=== PATIENT | female | born 1950 | race Caucasian/White ===

== ENCOUNTER 2016-02-08 21:37 | Observation (INO) | payer MEDICARE, BC ==
--- NOTE | 2016-02-08 22:15 | RAD ---
INDICATION: Neurologic change COMPARISON: None. TECHNIQUE: Contiguous axial sections of the brain were obtained from the skull base to the vertex without contrast. FINDINGS: The ventricles, cisterns and sulci are within normal limits. There is mild periventricular and subcortical white matter hypoattenuation. Otherwise the vaughan-white matter differentiation is adequately maintained and there is no sulcal effacement. No significant focal abnormality or mass effect is present. There is no evidence for intracranial hemorrhage. No significant focal osseous abnormality is present. The visualized portion of the paranasal sinuses and mastoid air cells appear clear. IMPRESSION: Evidence of subcortical and periventricular microvascular disease without acute intracranial abnormality. Findings were reported Dr. Pollock over the telephone at 2211 hours on February 08, 2016.
[2016-02-08] MEDS ORDERED: Aspirin Low Dose CHEW TAB* 81 MG PO ONE (22:18)
[2016-02-08 22:25] LABS: Hematocrit 40 % (35-47); Hemoglobin 13.1 g/dl (12.0-16.0); Mean Corpuscular HGB Conc 33 g/dl (31-36); Mean Corpuscular Hemoglobin 31 pg (27-31); Mean Corpuscular Volume 94 fL (80-97); Mean Platelet Volume 10 um3 (7.4-10.4); Red Blood Count 4.26 10^6/ul (4.0-5.4); Red Cell Distribution Width 13 % (10.5-15); White Blood Count 9.2 10^3/ul (3.5-10.8)
--- NOTE | 2016-02-08 22:37 | RAD ---
INDICATION: Lightheadedness COMPARISON: Chest x-ray dated December 27, 2011 TECHNIQUE: Single AP portable view of the chest was obtained. FINDINGS: Image quality is compromised due to the relative inferiority of a portable chest x-ray. The heart and mediastinum exhibit normal size and contour. The lungs are grossly clear. There is no evidence of a large pleural effusion. Visualized bones are normal for the patient's age. IMPRESSION: No radiographic evidence for acute cardiopulmonary abnormality on this portable chest x-ray.
[2016-02-08 22:40] LABS: Albumin 4.3 g/dL (3.2-5.2); BUN/Creatinine Ratio 19.4 (8-20); Calcium 9.1 mg/dL (8.6-10.3); EGFR African American 113.3 (>60); EGFR Non-African American 88.1 (>60); Globulin 2.5 g/dL (2-4); HDL Cholesterol 59.1 mg/dL; Total Bilirubin 0.3 mg/dL (0.2-1.0); Total Protein 6.8 g/dL (6.4-8.9)
[2016-02-08] MEDS ORDERED: Iohexol 350* (CONTRAST) 500 ML MDV IV ONE (22:46)
[2016-02-08] MEDS ORDERED: Zolpidem TAB* 5 MG PO PRN (22:58)
[2016-02-08 23:41] LABS: Urine Bacteria Absent (Absent); Urine Bilirubin Negative (Negative); Urine Glucose Negative (Negative); Urine Nitrite Negative (Negative)
--- NOTE | 2016-02-09 03:43 | HP ---
HISTORY AND PHYSICAL: DATE OF ADMISSION: 02/08/16 PRIMARY CARE PHYSICIAN: Dayanna Bell MD CHIEF COMPLAINT: Numbness in her lips. HISTORY OF PRESENT ILLNESS: The patient is a 65-year-old woman who said she was watching TV with her and started having some strange sensations in her head. She cannot really describe them but said maybe it was a whirling-type of sensation. She then panicked, put her head between her knees. Then she walked around and noticed that the left side of her lip and chin were numb. She walked into the other room and also felt a strange sensation in her left arm. She had no word- finding difficulties, no slurred speech, no facial droop, no difficulty ambulating, no problem with her vision. However, her looked this up on the internet and came to the ER for further evaluation. She currently feels much better, but she says she has pins and needles in her lips. PAST MEDICAL HISTORY: She has a past medical history significant for hypertension, rheumatoid arthritis, hypothyroidism, anxiety, left ovary was removed, tonsillectomy, bilateral arthroscopic knee surgery. CURRENT MEDICATIONS: 1. Ambien 5 mg at bedtime as needed. 2. Propranolol 60 mg daily. 3. Levothyroxine 100 mcg daily. 4. Lisinopril 10 mg daily. 5. Vitamin D tablets 400 units daily. 6. Leucovorin 5 mg weekly. 7. Plaquenil 400 mg daily. 8. Methotrexate unknown dose weekly. ALLERGIES: No known drug allergies. FAMILY HISTORY: Mother at 56 of breast cancer that metastasized to the lungs. Father at 82 of lung cancer. She has a sister now who is dying of lung cancer. SOCIAL HISTORY: Quit tobacco at age 41. She has red wine about 2 glasses at night. No recreational drug use. 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 She is . She has one biological daughter. Her , Kassy Tillamn, is her healthcare proxy. REVIEW OF SYSTEMS: A 14-point review of systems was completed with the patient. All pertinent positives and negatives are in the history of present illness, otherwise is negative. PHYSICAL EXAMINATION GENERAL: A pleasant woman lying in bed, in no acute distress. VITAL SIGNS: Blood pressure 137/74, pulse ox 97%, respiratory rate 17 breaths per minute, heart rate 67 beats per minute, temperature 97.4 degrees. HEENT: Normocephalic and atraumatic. Pupils equal, round, and reactive to light. Moist mucous membranes. NECK: Supple. No JVD. No bruits or palpable thyroid. No lymphadenopathy. CHEST: Clear to auscultation and percussion bilaterally. CARDIOVASCULAR: S1 and S2 appreciated. Regular rate and rhythm. No murmurs, gallops, or rubs. ABDOMEN: Positive bowel sounds in all 4 quadrants. Soft, nontender, nondistended. No hepatosplenomegaly. EXTREMITIES: No cyanosis, clubbing, or edema; +2 peripheral pulses bilaterally. NEURO: Alert and oriented x3. Moves all extremities. SKIN: No rashes or abnormalities. LABORATORY DATA: White count 9.2, hemoglobin 13.1, hematocrit 40, and platelets are 195. Sodium 137, potassium 4.0, chloride 104, CO2 25, BUN 13, creatinine 0.67, and glucose is 102. INR is 0.89. Brain CT as interpreted by Radiology showed evidence of subcortical and periventricular microvascular disease without acute intracranial abnormality. Chest x-ray was interpreted by Radiology as no radiographic evidence for acute cardiopulmonary abnormality on this portable chest x-ray. EKG shows normal sinus rhythm at 60 beats per minute. Normal axis. No acute ST -T wave changes. ASSESSMENT AND PLAN: 1. Transient ischemic attack, could be a stroke. She has some sensation abnormalities, but we will admit the patient to telemetry, do neurological checks q.4 hours, Neurology to see in the morning, check TTE with bubble studies , MRI of brain and CTA of head and neck. 2. Hypertension. Somewhat high today. She is on lisinopril. Adjust medications accordingly. 3. Rheumatoid arthritis. Continue hydroxychloroquine. Methotrexate is given weekly. 4. Hypothyroidism. Stable. Continue Synthroid. 5. Fluid, electrolytes, and nutrition. Regular diet. 6. DVT prophylaxis. Heparin subcu. 7. The patient is a full code. TIME SPENT: Over 75 minutes was spent on this H and P, more than 40 minutes were spent in direct [id number] contact with the patient in evaluation and physical exam, and counseling and coordination of care. CC: Dayanna Bell MD * [id number]/CPS #: [id number] [facility]
[2016-02-09] MEDS: Heparin VIAL(*) 5000 UNITS/ML VIAL (FIVE THOUSAND) SUBCUT SCH ×2 (05:17→13:59)
[2016-02-09] MEDS ORDERED: Levothyroxine TAB* 100 MCG TAB PO SCH (06:00)
[2016-02-09 06:56] LABS: HDL Cholesterol 59.7 mg/dL
--- NOTE | 2016-02-09 07:49 | RAD ---
HISTORY: Left facial numbness COMPARISONS: None TECHNIQUE: Multiple contiguous axial CT scans were obtained of the head and neck After the administration of nonionic intravenous contrast timed to the systemic arterial phase of contrast enhancement. Coronal and sagittal multiplanar reformations are submitted for review. Multiple 3-D maximum intensity projection reconstructions are also submitted for review. FINDINGS: CTA NECK: AORTIC ARCH: There is a normal three-vessel branching pattern of the aortic arch. There is no ostial or proximal stenosis of the cephalic great vessels. RIGHT VERTEBRAL ARTERY: The right vertebral artery is patent along its course, without stenosis. LEFT VERTEBRAL ARTERY: The left vertebral artery is patent along its course, without stenosis. DOMINANCE: The right vertebral artery is dominant. RIGHT COMMON CAROTID ARTERY: The right common carotid artery is patent. The right carotid bifurcation occurs at C3-C4 RIGHT INTERNAL CAROTID ARTERY: There is no right internal carotid artery stenosis by NASCET criteria. RIGHT EXTERNAL CAROTID ARTERY: The right external carotid artery is unremarkable. LEFT COMMON CAROTID ARTERY: The left common carotid artery is patent. The left carotid bifurcation occurs at C3-C4 LEFT INTERNAL CAROTID ARTERY: There is no left internal carotid artery stenosis by NASCET criteria. LEFT EXTERNAL CAROTID ARTERY: The left external carotid artery is unremarkable. VENOUS CIRCULATION: The venous system is unremarkable. SALIVARY GLANDS: The parotid glands, submandibular glands, sublingual glands are normal. NASAL CAVITY/NASOPHARYNX: The nasal cavity and nasopharynx are normal. ORAL CAVITY/OROPHARYNX: The oral cavity is obscured by streak artifact from dental amalgam. The visualized oral cavity and oropharynx are unremarkable. LARYNGEAL APPARATUS/HYPOPHARYNX: The laryngeal apparatus and hypopharynx are normal. UPPER AIRWAY/UPPER ESOPHAGUS: The visualized upper airway and esophagus are normal. LUNG APICES: The lung apices are clear. THYROID GLAND: The thyroid gland is normal. LYMPH NODES: There is no lymphadenopathy by size criteria. BONES AND SOFT TISSUES: Incidentally noted is a dysraphic defect of the posterior arch of C1. Degenerative changes are noted CTA HEAD: INTRACRANIAL CIRCULATION: There is no aneurysm, vascular malformation, occlusion, or stenosis of the visualized intracranial circulation. There is an infundibulum of the right posterior communicating artery.. The anterior communicating artery complex is clear. Bilateral posterior communicating arteries are identified. VENOUS CIRCULATION: The venous system is unremarkable. PERFUSION: There is no obvious parenchymal perfusion deficit. HEMORRHAGE/INFARCT: There is no hemorrhage or acute infarct. MASSES/SHIFT: There is no mass or shift. EXTRA-AXIAL SPACES: There are no extra-axial fluid collections. SULCI AND VENTRICLES: The sulci and ventricles are normal in size and position for the patient's stated age. CEREBRUM: There are no focal parenchymal abnormalities. BRAINSTEM: There are no focal parenchymal abnormalities. CEREBELLUM: There are no focal parenchymal abnormalities. PARANASAL SINUSES: The paranasal sinuses are clear. ORBITS: The orbits are unremarkable. BONES AND SOFT TISSUE: Unremarkable OTHER: There is no abnormal enhancement. IMPRESSION: 1. NO ANEURYSM, VASCULAR MALFORMATION, OCCLUSION, OR STENOSIS OF THE VISUALIZED INTRACRANIAL CIRCULATION. 2. NO INTERNAL CAROTID ARTERY STENOSIS BY NASCET CRITERIA CPT II Codes: 3100F
[2016-02-09] MEDS ORDERED: Aspirin EC Low Dose* 81 MG TAB.EC PO SCH (09:00)
[2016-02-09] MEDS ORDERED: Hydroxychloroquine TAB* 200 MG PO SCH (09:00)
[2016-02-09] MEDS ORDERED: Lisinopril TAB* 10 MG PO SCH (09:00)
[2016-02-09] MEDS ORDERED: Cholecalciferol TAB* 400 UNIT PO SCH (09:00)
[2016-02-09] MEDS ORDERED: Propranolol TAB* 60 MG PO SCH (09:00)
--- NOTE | 2016-02-09 10:16 | PN ---
Subjective Date of Service: 02/09/16 Interval History: Patient seen and examined at bedside. She continues to report tingling and numbness to the middle of her upper and lower lips, extending into the left jaw line. She denies fever, chest pain, SOB, abd pain, dysuria, n/v. She reports urinary frequency but not beyond her baseline. She follows with urology in the outpatient setting. Telemetry: NSR 50s-60s Family History: Unchanged from Admission Social History: Unchanged from Admission Past Medical History: Unchanged from Admission Objective Active Medications: Aspirin (Aspirin Ec Low Dose*) 81 mg PO DAILY [facility] Last Admin: 02/09/16 09:56 Dose: 81 mg Atorvastatin Calcium (Lipitor*) 10 mg PO 1700 [facility] Cholecalciferol (Vitamin D Tab*) 400 unit PO DAILY [facility] Last Admin: 02/09/16 09:56 Dose: 400 unit Heparin Sodium (Porcine) (Heparin Vial(*)) 5,000 units SUBCUT Q8HR [facility] Last Admin: 02/09/16 05:17 Dose: 5,000 units Hydroxychloroquine Sulfate (Plaquenil Tab*) 400 mg PO DAILY [facility] Last Admin: 02/09/16 09:55 Dose: 400 mg Levothyroxine Sodium (Synthroid Tab*) 100 mcg PO 0600 [facility] Last Admin: 02/09/16 05:18 Dose: 100 mcg Lisinopril (Prinivil Tab*) 10 mg PO DAILY [facility] Last Admin: 02/09/16 09:56 Dose: 10 mg Propranolol HCl (Inderal Tab*) 60 mg PO DAILY [facility] Last Admin: 02/09/16 09:56 Dose: 60 mg Zolpidem Tartrate (Ambien Tab*) 5 mg PO BEDTIME PRN PRN Reason: INSOMNIA Last Admin: 02/09/16 00:51 Dose: 5 mg Vital Signs 02/08/16 02/09/16 02/09/16 23:30 00:04 00:07 Temperature Pulse Rate 63 65 64 Respiratory 20 19 16 Rate Blood Pressure 135/97 (mmHg) O2 Sat by Pulse 94 97 95 Oximetry 02/09/16 02/09/16 02/09/16 00:09 00:25 03:25 Temperature 97.6 F 97.6 F Pulse Rate 65 61 55 Respiratory 17 17 20 Rate Blood Pressure 128/73 150/82 137/74 (mmHg) O2 Sat by Pulse 95 95 96 Oximetry 02/09/16 07:12 Temperature 98.0 F Pulse Rate 59 Respiratory 16 Rate Blood Pressure 121/83 (mmHg) O2 Sat by Pulse 98 Oximetry Oxygen Devices in Use Now: None Appearance: Female patient, well-appearing, lying in bed, in NAD Eyes: PERRLA Ears/Nose/Mouth/Throat: Mucous Membranes Moist Neck: NL Appearance and Movements; NL JVP Respiratory: Symmetrical Chest Expansion and Respiratory Effort, Clear to Auscultation Cardiovascular: NL Sounds; No Murmurs; No JVD, RRR Abdominal: NL Sounds; No Tenderness; No Distention Extremities: No Edema Skin: No Rash or Ulcers Neurological: Alert and Oriented x 3, - - 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 Ni is a 65 yo female with a PMH of HTN, RA, hypothyroidism, and anxiety who presented to the ED on 02/07/15 with numbness to her lips and left face that is concerning for TIA/stroke. - Patient Problems (1) Left facial numbness Code(s): R20.0 - ANESTHESIA OF SKIN Comment: Presented with "pins and needle" sensation to lips and to left side of face, now improved. Neurology consult pending. Awaiting MRI, TTE with bubble study. Continue ASA. Start atorvastatin for increased LDL on lipid profile. 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 CT brain shows evidence of subcortical and periventricular microvascular disease without acute intracranial abnormality. CTA head/neck shows no evidence of vascular pathology. EKG shows NSR and no significant arrhythmias on telemetry. (2) HTN (hypertension) Code(s): I10 - ESSENTIAL (PRIMARY) HYPERTENSION Comment: Better controlled. Continue lisinopril and propranolol. (3) Hypothyroidism Code(s): E03.9 - HYPOTHYROIDISM, UNSPECIFIED Comment: Continue levothyroxine. (4) Rheumatoid arthritis Code(s): M06.9 - RHEUMATOID ARTHRITIS, UNSPECIFIED Comment: Continue Plaquenil. Continue weekly methotrexate as an outpatient. (5) Anxiety Code(s): F41.9 - ANXIETY DISORDER, UNSPECIFIED Comment: Supportive care. (6) DVT prophylaxis Comment: SQ heparin Status and Disposition: OBV admit.
[2016-02-09 12:18] VITALS: BP 132/77
--- NOTE | 2016-02-09 13:03 | RAD ---
HISTORY: Numbness in face, TIA COMPARISONS: CTA dated February 08, 2016 TECHNIQUE: The following sequences were obtained of the head: Sagittal T1-weighted images, axial T2-weighted images, axial FLAIR images, axial susceptibility weighted images, axial T1-weighted images. Additionally, axial diffusion-weighted images were obtained with calculated apparent diffusion coefficients. FINDINGS: HEMORRHAGE/INFARCT: There is no hemorrhage or acute infarct. MASSES/SHIFT: There is no mass or shift. EXTRA-AXIAL SPACES/MENINGES: There are no extra-axial fluid collections. SULCI AND VENTRICLES: The sulci and ventricles are normal in size and position for the patient's stated age. CEREBRUM: There are multiple scattered small foci of elevated T2/FLAIR signal within the periventricular and subcortical white matter. BRAINSTEM: There are no focal parenchymal abnormalities. CEREBELLUM: There are no focal parenchymal abnormalities. The cerebellar tonsils are normal in size and position. SELLA: The sella is normal. PINEAL: The pineal region is clear. CP ANGLE/TEMPORAL BONES: The labyrinthine structures are grossly normal. VESSELS: Normal flow-voids are noted within the visualized vertebral vasculature. DIFFUSION ABNORMALITIES: There are no diffusion abnormalities. PARANASAL SINUSES/MASTOIDS: The frontal sinuses are hypoplastic. There is mucosal thickening in the maxillary sinuses. ORBITS: The orbits are unremarkable. BONES AND SOFT TISSUE: No bone or soft tissue abnormalities are noted. OTHER: None IMPRESSION: 1. THERE ARE MULTIPLE FOCI OF ELEVATED T2/FLAIR SIGNAL WITHIN THE PERIVENTRICULAR AND SUBCORTICAL WHITE MATTER. WHILE THESE FINDINGS ARE NONSPECIFIC, THEY CAN BE SEEN IN ASSOCIATION WITH MIGRAINE HEADACHE, THE SEQUELA OF PREVIOUS INFECTION OR INFLAMMATION, AND CHRONIC SMALL VESSEL ISCHEMIA. DEMYELINATING DISEASE IS ALSO WITHIN THE DIFFERENTIAL, BUT IS CONSIDERED LESS LIKELY IN THE ABSENCE OF THE APPROPRIATE CLINICAL PRESENTATION. 2. THERE IS NO RESTRICTED DIFFUSION TO SUGGEST ACUTE INFARCT
--- NOTE | 2016-02-09 16:31 | RAD ---
INDICATION: LEFT popliteal fossa and lateral calf pain. COMPARISON: None. TECHNIQUE: Anderson scale, color Doppler, and spectral analysis of the deep veins of the bilateral lower extremities. Vessel compression, phasicity, and augmentation assessed. REPORT: The right common femoral, great saphenous, profunda femoral, femoral, popliteal, peroneal, and posterior tibial veins are patent. The left common femoral, great saphenous, profunda femoral, femoral, popliteal, peroneal, and posterior tibial veins are patent. IMPRESSION: No evidence for right or left lower extremity deep venous thrombosis.
[2016-02-09] MEDS ORDERED: Atorvastatin* 10 MG TAB PO SCH (17:00)
--- NOTE | 2016-02-09 17:04 | ECHO ---
Patient: DEBORAH LEDESMA [facility] Rec#: [id number] : 1950 Date: 02/09/2016 Age: 65y Height: 157.5 cm / 62.0 in Weight: 71.2 kg / 156.9 lbs Sex: F BSA: 1.7 Room#: 431 Admit Date#: 02/08/2016 Type: Inpatient Referring: Cisco Burris MD Reading: Rebecca Ferrera MD English As A Second Language Instructor: Altagrcaia Torrez RN RDCS CC: Dayanna Bell MD Transthoracic Echocardiogram Indication: TIA BP: 137/74 HR: 74 Rhythm: NSR Findings History: HTN, hypothyroidism, anxiety, former smoker, RA Technical Comments: The study is technically limited due to patient body habitus. The study is technically limited due to the patient's smoking history. Completed at 1515. Left Ventricle: The left ventricular chamber size is normal. Moderate concentric left ventricular hypertrophy is observed. Global left ventricular wall motion and contractility are within normal limits. There is normal left ventricular systolic function. The estimated ejection fraction is 55-60%. There is an E to A reversal in the mitral valve flow pattern suggestive of diastolic dysfunction. Left Atrium: The left atrial chamber size is normal. Right Ventricle: The right ventricular chamber size and systolic function are within normal limits. Right Atrium: The right atrial cavity size is normal. There is predominant [id number] shunting across the interatrial septum. A patent foramen ovale is demonstrated by agitated contrast. 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 Aortic Valve: The aortic valve is trileaflet. The aortic valve leaflets are mildly thickened. There is trace to mild aortic regurgitation. There is no evidence of aortic stenosis. Mitral Valve: The mitral valve leaflets are mildly thickened. There is mild mitral regurgitation. There is no evidence of mitral stenosis. Tricuspid Valve: The tricuspid valve leaflets are normal. There is trace to mild tricuspid regurgitation. No pulmonary hypertension is noted. Pulmonic Valve: The pulmonic valve appears normal. There is mild to moderate pulmonic regurgitation. Pericardium: There is no significant pericardial effusion. A pericardial fat pad is visualized. Aorta: There is mild dilatation of the ascending aorta. There is no dilatation of the aortic arch. The aortic root is normal in size. Pulmonary Artery: The main pulmonary artery appears normal. Venous: The inferior vena cava appears normal in size. There is a greater than 50% respiratory change in the inferior vena cava dimension. Contrast: Normal saline was used as contrast for the bubble study. Image 1. Conclusions Moderate concentric left ventricular hypertrophy is observed. There is normal left ventricular systolic function. The estimated ejection fraction is 55-60%. There is an E to A reversal in the mitral valve flow pattern suggestive of diastolic dysfunction. The right ventricular chamber size and systolic function are within normal limits. A patent foramen ovale is demonstrated by agitated contrast, immediate crossing of multiple bubbles from RA to LA. 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 There is trace to mild aortic regurgitation. There is mild mitral regurgitation. There is trace to mild tricuspid regurgitation. No pulmonary hypertension is noted. There is mild dilatation of the ascending aorta 3.7 mmHg. No prior echo to compare. Measurements Name Value Normal Range RVDdMajor (2D) 3.1 cm (2.2 - 4.4) RAd ISD 4CH 4.4 cm (3.4 - 4.9) RA (A4C)W 3.3 cm (2.9 - 4.6) IVSd (2D) 1.4 cm (0.6 - 1) LVPWd (2D) 1.3 cm (0.6 - 1) LVIDd (2D) 3.9 cm (3.6 - 5.4) LVIDs (2D) 2.8 cm - LV FS (2D) 28 % (25 - 45) Aortic Annulus 2.1 cm (1.4 - 2.6) Ao root diameter (2D) 3 cm (2.1 - 3.5) Ascending Ao 3.7 cm (2.1 - 3.4) Aortic arch 2.4 cm (1.8 - 3.4) LA dimension (AP) 2D 3.5 cm (2.3 - 3.8) LAd ISD 4CH 4.7 cm (2.9 - 5.3) LA ISD 4CH W 4.4 cm (2.5 - 4.5) Name Value Normal Range LA ESV SP 4CH (A/L) 54 ml - LA ESV SP 2CH (A/L) 55 ml - LA ESV BP (A/L) 57 ml - LA ESV BP (A/L) index 33 ml/m2 - LA ESV SP 4CH (MOD) 50 ml - LA ESV SP 2CH (MOD) 52 ml - Name Value Normal Range MV E-wave Vmax 0.68 m/sec - MV deceleration time 191 msec - MV A-wave Vmax 0.98 m/sec - MV E:A ratio 0.7 ratio - LV septal e' Vmax 0.06 m/sec - LV lateral e' Vmax 0.08 m/sec - LV E:e' septal ratio 11.3 ratio - LV E:e' lateral ratio 8.5 ratio - Name Value Normal Range AV Vmax 1.7 m/sec - LVOT Vmax 1.3 m/sec - TOY Vmax 0.8 m/sec - Name Value Normal Range TR Vmax 2.7 m/sec - TR peak gradient 29 mmHg - RAP 3 mmHg - RVSP 32 mmHg - IVC diameter 1.5 cm - Name Value Normal Range PV Vmax 0.75 m/sec -
[2016-02-09] MEDS ORDERED: Ezetimibe TAB* 10 MG PO SCH (18:00)
--- NOTE | 2016-02-09 20:06 | CONS ---
CONSULTATION REPORT: DATE OF CONSULT/DICTATION: 02/08/15 PATIENT OF: Azalea Spicer, ARIANA, and Dr. Bell. HISTORY OF PRESENT ILLNESS: This is a 65-year-old woman I am asked to evaluate for focal neurological deficits. She yesterday was watching TV and had a strange sensation in her head with a sensation of movement in her head, although it was not room spinning. She also had some blurriness or fuzziness in vision all over and then noted that the left lip, chin and into her cheek were numb and tingling. She reported to the admitting hospitalist that she had some altered sensation in her left arm but denied any numbness in her arms or legs to me. Of note, she has history of anxiety and has been quite stressed recently. She also has a longstanding history of hypertension and had been treated for hyperlipidemia in the past. She has anxiety, rheumatoid arthritis, hypothyroidism, status post oophorectomy, tonsillectomy and arthroscopic knee surgery. MEDICATIONS: On admission include: 1. Ambien 5 mg at bedtime as needed. 2. Propranolol 60 mg daily. 3. Levothyroxine 100 mcg daily. 4. Lisinopril 10 mg daily. 5. Leucovorin 5 mg daily. 6. Plaquenil 400 mg daily. 7. Methotrexate unknown dose. ALLERGIES: She has no known drug allergies. FAMILY HISTORY: Father and grandmother had history of cardiovascular disease. There is a strong family history for cancer in her mother and father. SOCIAL HISTORY: She quit smoking at age 41. She drinks 2 glasses of red wine at night. No drug use. She is self-employed. with 1 biological daughter. REVIEW OF SYSTEMS: Negative of all 14 spheres other than in the HPI. PHYSICAL EXAM: On exam temperature 97.7, pulse 64, respirations 16, blood pressure 132/77. She is alert and oriented with normal speech and comprehension. Cranial nerves II through XII are intact other than some subjective decreased sensation in her left cheek and by her left lip. There is no facial asymmetry. Fundi were benign. Motor exam revealed normal tone, strength, coordination. Strength 5/5 bilaterally. Reflexes 2 and equal. Sensation intact to light touch. Chest clear. Cardiovascular: Regular rate and rhythm. Abdomen: Soft with positive bowel sounds. DIAGNOSTIC STUDIES/LAB DATA: Her CT scan showed some microvascular disease. Her CTA showed no carotid stenosis or intracranial vascular disease. Labs include normal CBC, normal INR and PTT, normal CMP. Her fasting lipids were LDL of 116. UA had a 3+ leuk esterase. Her MRI scan is pending. IMPRESSION: I think Shakila had a minor stroke with some left facial numbness at this point being the residual. I think it was a stroke rather than symptomatic Garcia's palsy because it began so acutely, because it was associated with sensation of room movement of a vertiginous type and also she had some visual blurring. With this, I wonder whether this was an episode of a small degree of posterior circulation insufficiency leaving her with a minor stroke. She needs to be on aspirin and a statin, and I have recommended weight loss with her doctor. She will need a cardiac echo as well. ADDENDUM: I have reviewed the MRI scan, which has not been read yet; it shows fairly diffuse white matter disease consistent with small vessel ischemic disease including in the brain stem. This looks chronic to my eye and I am not seeing an acute lesion but the MRI scan is consistent with a patient who could be having small stroke and does not change my recommendations as above. [id number]/[facility] #: [id number] [facility] CENTERPankaj
--- NOTE | 2016-02-10 07:45 | DS ---
MEDICINE DISCHARGE SUMMARY: DATE OF ADMISSION: 02/08/16. DATE OF DISCHARGE: 02/09/16. PROVIDER: Dane Suarez NP. ATTENDING PHYSICIAN: Dr. Louis Skelton* (dictated by Dane Suarez NP) PRIMARY CARE PROVIDER: Dr. Bell CONSULTING PHYSICIAN: Dr. Adam Moore, Neurology. PRIMARY DISCHARGE DIAGNOSES: 1. CVA, suspected small stroke within the brain stem per Neurology. 2. Dyslipidemia. SECONDARY DISCHARGE DIAGNOSES: 1. Hypertension. 2. Rheumatoid arthritis. 3. Hypothyroidism. 4. Anxiety. MEDICATIONS AT DISCHARGE: 1. Aspirin 325 mg daily. This is a new medication. 2. Zetia 10 mg daily. This is a new medication. 3. Methotrexate 2.5 mg weekly. 4. Zolpidem 5 mg at bedtime p.r.n. 5. Propranolol 60 mg daily. 6. Levothyroxine 100 mcg daily. 7. Lisinopril 10 mg daily. 8. Cholecalciferol 400 units daily. 9. Leucovorin 5 mg weekly. 10. Plaquenil 400 mg daily. HOSPITAL COURSE AND STAY: For full details, please refer to the H and P provided by Dr. Burris on 02/08/16. In summary, Ms. Ni is a 65-year-old woman who was watching television on the evening of 02/08/16 and reported having a whirling sensation in her head and subsequent left lip and chin tingling and numbness. The patient also felt a strange sensation in her left arm. She denies any aphasia, expressive or receptive, language alteration, slurred speech, facial droop, difficulty ambulating. She did report some blurred vision. The patient was brought into the ED and was evaluated as a Code Anderson. CT of the brain showed evidence of subcortical and periventricular microvascular disease without acute intracranial abnormality. The patient was given aspirin, and neurology consult was also placed. She had a head and neck CTA which showed no aneurysm, vascular malformation, occlusion, or stenosis of the visualized intracranial circulation. No internal carotid artery stenosis by NASCET criteria. Overnight, the patient had no other concerns and her neurological checks within normal limits. She had a brain MRI the following morning, which showed: Multiple foci of elevated T2/flair signal within the periventricular and subcortical white matter. While these findings are nonspecific, they can be seen in association with migraine headache, as a sequela of previous infection or inflammation, and chronic small- vessel ischemia. Demyelinating disease is also within the differential, but is considered less likely in the absence of the appropriate clinical presentation. There is no restricted diffusion to suggest acute infarcts. The patient's transthoracic echocardiogram showed moderate concentric left ventricular hypertrophy was observed. There is normal left ventricular systolic function. The estimated ejection fraction is 55-60%. There is an E to A reversal in the mitral valve flow pattern suggestive of diastolic dysfunction. The right ventricular chamber size and systolic function are within normal limits. A patent foramen ovale is demonstrated by agitated contrast, immediate crossing of multiple levels from RA to LA. 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 There is [id number] aortic regurgitation. There is mild mitral regurgitation. There is [id number] tricuspid regurgitation. No pulmonary hypertension is noted. There is mild dilatation of the ascending aorta, 3.7 mm. No prior echo for comparison. Due to the finding of the patent foramen ovale, the patient did have bilateral Dopplers done on the lower extremities with no evidence for right or left extremity deep vein thrombosis. I did discuss these findings with Dr. Moore. Please refer to his consultation for full details. He did recommend that the patient be started on and maintained on aspirin 325 mg daily as well as cholesterol modifying medication. Per my discussion with him, it was expressed that he felt that the patient may have had a small brain stem infarction or event that may be due to her cardiovascular risk factors. I did attempt to start the patient on some Lipitor, but she stated that she was previously on a statin medication and did not tolerate it. She also reported elevation of her LFTs. The patient was instead started on Zetia and was advised to discuss the medication with her PCP, and to follow up closely with her given her autoimmune disorder and DMARD medication regimen. The patient demonstrated no further neurological deficits. She was able to safely ambulate and eat without concern. We did discuss her echocardiogram findings as well as being maintained on aspirin to start with. We also discussed the importance of heart-healthy diet and medication adherence. The patient verbalized agreement. At her request, she will be discharged to home this evening with a plan to call her PCP and follow up with her within the week. CONCERNS AT DISCHARGE: The patient will be discharged home on 02/09/16 with a plan to follow up with Dr. Bell. DIET: Heart-healthy diet. ACTIVITY: As tolerated. CONDITION: Stable. DISPOSITION: To home. TIME SPENT: Time spent on this discharge was approximately 45 minutes. Again, this is only a brief summary of the patient's hospital course of stay. For full details, please refer to the full medical records. If you have any further questions or need any further assistance, please feel free to contact me at . DANE SUAREZ NP CC: Dr. Bell * [id number]/[facility] #: [id number] MTDPankaj
[2016-02-10] MEDS ORDERED: Aspirin TAB* 325 MG PO SCH (09:00)
--- NOTE | 2016-02-10 14:28 | ED ---
Tr Forte Billy, scribed for Hu Pollock MD on 02/08/16 at 2218 . Neurological HPI - HPI Summary HPI Summary: Patient is a 65 year-old female coming to [facility] presenting with constant left- sided lower lip and jaw numbness and tingling. She was at rest when her symptoms began at approximately 2100 today. Nothing makes her symptoms better or worse. She denies any visual changes, slurred speech, or involvement of the extremities. She has no other complaints at this time. - History of Current Complaint Chief Complaint: EDNeurologicalDeficit Stated Complaint: LIGHT HEADED/NUMB/CHEST PRESSURE Time Seen by Provider: 02/08/16 21:54 Hx Obtained From: Patient Onset/Duration: Gradual Onset Timing: Constant Onset Severity: Moderate Current Severity: Moderate Neurological Deficit Location: Facial Pain Intensity: 0 Character: Numbness/Tingling Aggravating: Nothing Alleviating: Nothing Associated Signs and Symptoms: Negative: Visual Changes, Impaired Speech - Allergy/Home Medications Allergies/Adverse Reactions: Allergies Allergy/AdvReac Type Severity Reaction Status Date / Time No Known Allergies Allergy Verified 06/12/14 21:57 Home Medications: Home Medications Cholecalciferol TAB* [Vitamin D TAB*] 400 unit PO DAILY 02/08/16 [History Confirmed 02/08/16] Hydroxychloroquine TAB* [Plaquenil TAB*] 400 mg PO DAILY 02/08/16 [History Confirmed 02/08/16] Leucovorin TAB* 5 mg PO WEEKLY 02/08/16 [History Confirmed 02/08/16] Levothyroxine TAB* [Synthroid 100 MCG TAB*] 100 mcg PO DAILY 02/08/16 [History Confirmed 02/08/16] Lisinopril TAB* [Prinivil TAB 10 MG*] 10 mg PO DAILY 02/08/16 [History Confirmed 02/08/16] Methotrexate TAB* 2.5 mg PO WEEKLY 02/08/16 [History Confirmed 02/09/16] Propranolol TAB* [Inderal TAB*] 60 mg PO DAILY 02/08/16 [History Confirmed 02/07] Zolpidem TAB* [Ambien*] 5 mg PO BEDTIME PRN 02/08/16 [History Confirmed 02/08/16 ] PMH/Surg Hx/FS Hx/Imm Hx Endocrine/Hematology History: Reports: Hx Thyroid Disease Denies: Hx Diabetes Cardiovascular History: Reports: Hx Hypertension Denies: Hx Congestive Heart Failure Respiratory History: Denies: Hx Asthma Musculoskeletal History: Reports: Hx Rheumatoid Arthritis Denies: Hx Osteoporosis - Cancer History Hx Chemotherapy: No Hx Radiation Therapy: No - Surgical History Surgery Procedure, Year, and Place: Right oophrectomy. tonsilectomy. appendectomy Infectious Disease History: No Infectious Disease History: Denies: Hx Clostridium Difficile, Hx Hepatitis, Hx Human Immunodeficiency Virus (HIV), Hx of Known/Suspected MRSA, Hx Shingles, Hx Tuberculosis, Hx Known/ Suspected VRE, Hx Known/Suspected VRSA, History Other Infectious Disease, Traveled Outside the [place] in Last 30 Days - Family History Known Family History: Positive: Cardiac Disease - Social History Alcohol Use: Daily Alcohol Amount: 1-2 glasses of wine Substance Use Type: Reports: None Hx Tobacco Use: Yes Smoking Status (MU): Former Smoker Type: Cigarettes Amount Used/How Often: 26 years Have You Smoked in the Last Year: No Review of Systems Negative: Photophobia, Blurred Vision, Diplopia Positive: Paresthesia, Numbness. Negative: Slurred Speech All Other Systems Reviewed And Are Negative: Yes Physical Exam - Summary Physical Exam Summary: GENERAL: Awake, alert, oriented, no acute distress, very pleasant, normal phonation HEENT: Head is normocephalic, atraumatic, pupils equal round reactive to light, no photophobia, extraocular muscles intact, no facial droop, anicteric sclera, pink conjunctiva, mucous membranes moist, no erythema, no discharge, no lesions , neck is soft, neck is supple, no carotid bruit , trachea is midline, no JVD CARDIAC: Regular rate and rhythm, S1, S2, no rub, no murmur, no gallop, 2+ radial and pedal pulses bilaterally RESPIRATORY: Clear to auscultation bilaterally with no rales, rhonchi, or wheezes, non-tender ABDOMEN: Bowel sounds positive, no bruit, soft non-tender, no CVA tenderness EXTREMITIES: No edema, warm, dry, moving all extremities in a grossly normal manner NEUROLOGICAL: Cranial nerves II through XII intact, five out of five flexor and extensor strength in upper and lower extremities symmetrically, 2+ DTRs in upper and lower extremities symmetrically, no pronator drift, normal finger nose finger, normal rapid alternating movements, negative Babinski, normal sensation in all extremities. See NIH Stroke Scale for more details. Triage Information Reviewed: Yes Vital Signs On Initial Exam: Initial Vitals Temp Pulse Resp BP Pulse Ox 97.4 F 64 18 157/87 99 02/08/16 21:41 02/08/16 21:41 02/08/16 21:41 02/08/16 21:41 02/08/16 21:41 Vital Signs Reviewed: Yes Diagnostics - Vital Signs Vital Signs Temp Pulse Resp BP Pulse Ox 02/08/16 21:41 97.4 F 64 18 157/87 99 - Laboratory Lab Results: Lab Results 02/08/16 02/08/16 02/08/16 Range/Units 22:05 22:05 22:05 WBC 9.2 (3.5-10.8) 10^3/ul RBC 4.26 (4.0-5.4) 10^6/ul Hgb 13.1 (12.0-16.0) g/dl Hct 40 (35-47) % MCV 94 (80-97) fL MCH 31 (27-31) pg MCHC 33 (31-36) g/dl RDW 13 (10.5-15) % Plt Count 195 (150-450) 10^3/ul MPV 10 (7.4-10.4) um3 Neut % (Auto) 56.1 (38-83) % Lymph % (Auto) 33.4 (25-47) % Amador % (Auto) 7.2 (1-9) % Eos % (Auto) 2.4 (0-6) % Baso % (Auto) 0.9 (0-2) % Absolute Neuts (auto) 5.2 (1.5-7.7) 10^3/ul Absolute Lymphs (auto) 3.1 (1.0-4.8) 10^3/ul Absolute Monos (auto) 0.7 (0-0.8) 10^3/ul Absolute Eos (auto) 0.2 (0-0.6) 10^3/ul Absolute Basos (auto) 0.1 (0-0.2) 10^3/ul Absolute Nucleated RBC 0.01 10^3/ul Nucleated RBC % 0.1 INR (Anticoag Therapy) 0.89 (0.89-1.11) APTT 29.5 (26.0-36.3) seconds Sodium 137 (133-145) mmol/L Potassium 4.0 (3.5-5.0) mmol/L Chloride 104 (101-111) mmol/L Carbon Dioxide 25 (22-32) mmol/L Anion Gap 8 (2-11) mmol/L BUN 13 (6-24) mg/dL Creatinine 0.67 (0.51-0.95) mg/dL Est GFR ( Amer) 113.3 (>60) Est GFR (Non-Af Amer) 88.1 (>60) BUN/Creatinine Ratio 19.4 (8-20) Glucose 102 H (70-100) mg/dL Lactic Acid (0.5-2.0) mmol/L Calcium 9.1 (8.6-10.3) mg/dL Total Bilirubin 0.30 (0.2-1.0) mg/dL AST 23 (13-39) U/L ALT 21 (7-52) U/L Alkaline Phosphatase 90 (34-104) U/L Troponin I 0.00 (<0.04) ng/mL Total Protein 6.8 (6.4-8.9) g/dL Albumin 4.3 (3.2-5.2) g/dL Globulin 2.5 (2-4) g/dL Albumin/Globulin Ratio 1.7 (1-3) Triglycerides 290 mg/dL Cholesterol 228 mg/dL LDL Cholesterol 111 mg/dL HDL Cholesterol 59.1 mg/dL Urine Color Urine Appearance Urine pH (5-9) Ur Specific Woodridge (1.010-1.030) Urine Protein (Negative) Urine Ketones (Negative) Urine Blood (Negative) Urine Nitrate (Negative) Urine Bilirubin (Negative) Urine Urobilinogen (Negative) Ur Leukocyte Esterase (Negative) Urine WBC (Auto) (Absent) Urine RBC (Auto) (Absent) Ur Squamous Epith Cells (Absent) Urine Bacteria (Absent) Hyaline Casts (Absent) Urine Glucose (Negative) 02/08/16 02/08/16 Range/Units 22:05 23:10 WBC (3.5-10.8) 10^3/ul RBC (4.0-5.4) 10^6/ul Hgb (12.0-16.0) g/dl Hct (35-47) % MCV (80-97) fL MCH (27-31) pg MCHC (31-36) g/dl RDW (10.5-15) % Plt Count (150-450) 10^3/ul MPV (7.4-10.4) um3 Neut % (Auto) (38-83) % Lymph % (Auto) (25-47) % Amador % (Auto) (1-9) % Eos % (Auto) (0-6) % Baso % (Auto) (0-2) % Absolute Neuts (auto) (1.5-7.7) 10^3/ul Absolute Lymphs (auto) (1.0-4.8) 10^3/ul Absolute Monos (auto) (0-0.8) 10^3/ul Absolute Eos (auto) (0-0.6) 10^3/ul Absolute Basos (auto) (0-0.2) 10^3/ul Absolute Nucleated RBC 10^3/ul Nucleated RBC % INR (Anticoag Therapy) (0.89-1.11) APTT (26.0-36.3) seconds Sodium (133-145) mmol/L Potassium (3.5-5.0) mmol/L Chloride (101-111) mmol/L Carbon Dioxide (22-32) mmol/L Anion Gap (2-11) mmol/L BUN (6-24) mg/dL Creatinine (0.51-0.95) mg/dL Est GFR ( Amer) (>60) Est GFR (Non-Af Amer) (>60) BUN/Creatinine Ratio (8-20) Glucose (70-100) mg/dL Lactic Acid 1.2 (0.5-2.0) mmol/L Calcium (8.6-10.3) mg/dL Total Bilirubin (0.2-1.0) mg/dL AST (13-39) U/L ALT (7-52) U/L Alkaline Phosphatase (34-104) U/L Troponin I (<0.04) ng/mL Total Protein (6.4-8.9) g/dL Albumin (3.2-5.2) g/dL Globulin (2-4) g/dL Albumin/Globulin Ratio (1-3) Triglycerides mg/dL Cholesterol mg/dL LDL Cholesterol mg/dL HDL Cholesterol mg/dL Urine Color Yellow Urine Appearance Cloudy Urine pH 5.0 (5-9) Ur Specific Woodridge 1.008 L (1.010-1.030) Urine Protein Negative (Negative) Urine Ketones Negative (Negative) Urine Blood Negative (Negative) Urine Nitrate Negative (Negative) Urine Bilirubin Negative (Negative) Urine Urobilinogen Negative (Negative) Ur Leukocyte Esterase 3+ H (Negative) Urine WBC (Auto) 1+(6-10/hpf) H (Absent) Urine RBC (Auto) Trace(0-2/hpf) (Absent) Ur Squamous Epith Cells Present H (Absent) Urine Bacteria Absent (Absent) Hyaline Casts Present H (Absent) Urine Glucose Negative (Negative) Result Diagrams: 02/08/16 22:05 02/08/16 22:05 Lab Statement: Any lab studies that have been ordered have been reviewed, and results considered in the medical decision making process. - Radiology CXR Xray Interpretation: No Acute Changes Radiology Interpretation Completed By: Radiologist - CT brain CT Interpretation Completed By: Radiologist - Evidence of subcortical and periventricular microvascular disease without acute intracranial abnormality. CTA head/neck CT Interpretation Completed By: Radiologist - No evidence of vascular pathology in the head or neck. 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: Both Correctly Best Gaze (Only Horizontal Eye Movement): Normal Visual Field Testing: No Visual Loss Facial Paresis-Pt to Smile & Close Eyes or Grimace Symmetry: Normal/Symmetrical Motor Function - Right Arm: No Drift-Holds 10 Seconds Motor Function - Left Arm: No Drift-Holds 10 Seconds Motor Function - Right Leg: No Drift-Holds 10 Seconds Motor Function - Left Leg: No Drift-Holds 10 Seconds Limb Ataxia-Must be out of Proportion to Weakness Present: Absent Sensory (Use Pinprick to Test Arms/Legs/Trunk/Face): Normal Best Language (Describe Picture, Name Items): No Aphasia Dysarthria (Read Several Words): Normal Extinction and Inattention: No Abnormality Total Score: 0 Re-Evaluation - Re-Evaluation First Eval Re-Evaluation Time: 23:36 Comment: CT imaging results reviewed. Course/Dx - Course Assessment/Plan: 65 year-old female coming to [facility] with a CC of left-sided lower lip and jaw numbness/tingling starting tonight at 2100. EKG shows NSR with no acute ischemia. CT brain shows evidence of subcortical and periventricular microvascular disease without acute intracranial abnormality. CXR shows no acute cardiopulmonary pathology. CTA head/neck shows no evidence of vascular pathology. Patient care discussed with Dr. Martell and Dr. Burris, who accepted the patient for admission. - Diagnoses Provider Diagnoses: tia During the Visit The Following Alert/Code Occurred: Code Hines - Physician Notifications Discussed Care of Patient With: Dr. Carson (radiology) @ 2212: Brain CT findings discussed. Dr. Martell (neurology) @ 2215: recommends ASA and CTA head/ neck imaging. Recommends admission to hospitalist services. Dr. Burris ( hospitalist) @ 2228: accepts admission. Discharge - Discharge Plan Condition: Stable Disposition: ADMITTED TO [facility] documentation as recorded by the Tr lomax Billy accurately reflects the service I personally performed and the decisions made by , Hu Pollock MD.
== END 2016-02-09 21:15 | disposition home or self-care (01) ==
LOC: ED 21:37 → MEDTELE 23:15
PROVIDERS: ADMIT Internal Medicine; ATTEND Hospitalist
DX: I63.9 Cerebral infarction, unspecified (principal); E78.5 Hyperlipidemia, unspecified; I10 Essential (primary) hypertension; M06.9 Rheumatoid arthritis, unspecified; E03.9 Hypothyroidism, unspecified; I51.7 Cardiomegaly; Q21.1 Atrial septal defect; Z79.899 Other long term (current) drug therapy; Z79.82 Long term (current) use of aspirin; Z87.891 Personal history of nicotine dependence; M79.662 Pain in left lower leg
CPT/HCPCS: 36415; 70450; 70496; 70498; 70551; 71010; 80053; 80061; 81003; 81015; 83605; 84484; 85025; 85610; 85730; 86618; 87086; 93005; 93306; 93970; 96372; 99285; A9270-GY; G0378; J1644; Q9967

== ENCOUNTER 2017-04-13 07:57 | Emergency (ER) | payer MEDICARE ==
[2017-04-13 08:25] VITALS: BP 141/100
--- NOTE | 2017-04-13 08:44 | UC ---
Ear Complaint HPI - HPI Summary HPI Summary: Patient presents concerned that there is a piece of her hearing aid stuck in her right ear canal. She took her hearing aids out last night and when she went to put them back in this morning she noticed that a piece of it was missing. She reports mild discomfort in the right ear but no obvious change in hearing. No drainage. - History of Current Complaint Chief Complaint: UCEar Stated Complaint: HEARING AID PIECE STUCK IN EAR Time Seen by Provider: 04/13/17 08:23 Hx Obtained From: Patient Onset/Duration: Sudden Onset, Lasting Hours Severity Initially: Mild Severity Currently: Mild Pain Intensity: 0 Pain Scale Used: 0-10 Numeric Aggravating Factors: Nothing Alleviating Factors: Nothing Associated Signs/Symptoms: Positive: Foreign Body Sensation. Negative: Discharge, Hearing Loss, Trauma to Ear, Swelling @, URI Symptoms - Allergies/Home Medications Allergies/Adverse Reactions: Allergies Allergy/AdvReac Type Severity Reaction Status Date / Time No Known Allergies Allergy Verified 04/13/17 08:12 Home Medications: Home Medications Atorvastatin* [Lipitor 10 MG*] 10 mg PO DAILY 04/13/17 [History Confirmed ] PMH/Surg Hx/FS Hx/Imm Hx Endocrine History: Hypothyroidism Cardiovascular History: Hypertension - Surgical History Surgical History: Yes Surgery Procedure, Year, and Place: Oophrectomy. Knee surgery. Tonsillectomy. Lumpectomy - Family History Known Family History: Positive: Cardiac Disease, Hypertension - Social History Alcohol Use: Daily Alcohol Amount: 1-2 glasses of wine Substance Use Type: None Smoking Status (MU): Former Smoker Type: Cigarettes Amount Used/How Often: 26 years Have You Smoked in the Last Year: No When Did the Patient Quit Smoking/Using Tobacco: 22 years Review of Systems Constitutional: Negative ENT: Ear Ache Respiratory: Negative Cardiovascular: Negative Gastrointestinal: Negative All Other Systems Reviewed And Are Negative: Yes Physical Exam Triage Information Reviewed: Yes Appearance: Well-Appearing, No Pain Distress, Well-Nourished Vital Signs: Initial Vital Signs Temp 98.1 F 04/13/17 08:18 Pulse 63 04/13/17 08:18 Resp 16 04/13/17 08:18 BP 141/100 04/13/17 08:18 Pulse Ox 97 04/13/17 08:18 Vital Signs Reviewed: Yes Eyes: Positive: Conjunctiva Clear ENT: Positive: Hearing grossly normal, TMs normal, Other - HEARING AID PIECE LODGED IN RIGHT EAR CANAL Neck: Positive: Supple Respiratory: Positive: No respiratory distress, No accessory muscle use Cardiovascular: Positive: Pulses Normal Abdomen Description: Positive: Soft Musculoskeletal: Positive: No Edema Neurological: Positive: Alert Psychological: Positive: Age Appropriate Behavior Skin: Negative: rashes Ear Complaint Course/Dx - Course Course Of Treatment: Hearing aid piece removed from right ear canal without difficulty using alligator forceps. - Differential Dx/Diagnosis Provider Diagnoses: Right ear foreign body-removed Discharge - Discharge Plan Condition: Stable Disposition: HOME Patient Education Materials: Ear Foreign Body (ED) Referrals: Dayanna Bell MD [Primary Care Provider] - If Needed Additional Instructions: Your hearing aid piece was removed today without difficulty. Avoid putting anything in your right ear for the next 24 hours to allow any ear canal inflammation to calm down. Follow-up with your PCP or here if you develop any ear pain or discharge or any other concerning symptoms.
== END 2017-04-13 08:44 | disposition home or self-care (01) ==
LOC: UCEAST 07:57
DX: T16.1XXA Foreign body in right ear, initial encounter (principal); X58.XXXA Exposure to other specified factors, initial encounter; Y93.9 Activity, unspecified; Y92.9 Unspecified place or not applicable; E03.9 Hypothyroidism, unspecified; I10 Essential (primary) hypertension; Z87.891 Personal history of nicotine dependence
CPT/HCPCS: 69200; 99212; G0463

== ENCOUNTER 2017-10-20 14:58 | Observation (INO) | payer MEDICARE ==
[2017-10-20] MEDS ORDERED: NS 0.9% 1000 ML* 1,000 ML IV ONE (15:14)
[2017-10-20 15:32] LABS: ABS Basophils 0.1 10^3/ul (0-0.2); ABS Eosinophils 0.2 10^3/ul (0-0.6); ABS Lymphocytes 2.2 10^3/ul (1.0-4.8); ABS Monocytes 0.7 10^3/ul (0-0.8); ABS Neutrophils 3.9 10^3/ul (1.5-7.7); ABS Nucleated RBC 0 10^3/ul; Eosinophil % 2.4 % (0-6); Hematocrit 38 % (35-47); Hemoglobin 12.9 g/dl (12.0-16.0); Lymphocyte % 31.8 % (25-47); Mean Corpuscular HGB Conc 34 g/dl (31-36); Mean Corpuscular Hemoglobin 31 pg (27-31); Mean Corpuscular Volume 92 fL (80-97); Mean Platelet Volume 10.4 um3 (7.4-10.4); Nucleated Red Blood Cells % 0; Platelet Count 190 10^3/ul (150-450); Red Blood Count 4.14 10^6/ul (4.00-5.40); Red Cell Distribution Width 13 % (10.5-15); White Blood Count 7.1 10^3/ul (3.5-10.8)
[2017-10-20 15:40] LABS: INR 0.92 (0.77-1.02)
--- NOTE | 2017-10-20 15:45 | ED ---
Neurological HPI - HPI Summary HPI Summary: This patient is a 67 year [facility] F [facility] another woman after her left face went numb earlier today at 1320. Pt states she was walking to go vote when sx began and she began to feel unsteady, listing to the left. The patient rates the pain 0/10 in severity. Patient reports chest heaviness and strange sensation in the left arm. Patient denies weakness, MOYA, and slurred speech. Pt compares sx to TIA. Pt takes 650 mg asa today and takes 325 asa daily. Pt has a PFO. - History of Current Complaint Chief Complaint: EDNeurologicalDeficit Stated Complaint: POSSIBLE TIA Hx Obtained From: Patient Onset/Duration: Resolved Timing: Constant Onset Severity: Moderate Current Severity: Moderate Pain Intensity: 0 Pain Scale Used: 0-10 Numeric Character: Other: - unsteady Episode Lasting: Seconds/Minutes Syncope Context: Loss of Consciousness: No Frequency: Episodes x___ - 1 Alleviating: Spontanious Resolution Associated Signs and Symptoms: Positive: Negative - fever. Negative: Loss of Consciousness - Additional Pertinent History Primary Care Physician: BO - Allergy/Home Medications Allergies/Adverse Reactions: Allergies Allergy/AdvReac Type Severity Reaction Status Date / Time No Known Allergies Allergy Verified 04/13/17 08:12 Home Medications: Home Medications Atorvastatin* [Lipitor*] 10 mg PO DAILY 10/20/17 [History Confirmed 10/20/17] Levothyroxine TAB* [Synthroid TAB*] 100 mcg PO DAILY 10/20/17 [History Confirmed 10/20/17] Lisinopril TAB* [Prinivil TAB*] 10 mg PO DAILY 10/20/17 [History Confirmed 10/20] Propranolol HCl [Propranolol HCl ER] 60 mg PO DAILY 10/20/17 [History Confirmed 10/20/17] PMH/Surg Hx/FS Hx/Imm Hx Endocrine/Hematology History: Reports: Hx Thyroid Disease Denies: Hx Diabetes Cardiovascular History: Reports: Hx Hypertension Denies: Hx Congestive Heart Failure, Hx Pacemaker/ICD Respiratory History: Denies: Hx Asthma, Hx Chronic Obstructive Pulmonary Disease (COPD) GI History: Reports: Hx Gastroesophageal Reflux Disease Denies: Hx Ulcer History: Denies: Hx Dialysis, Hx Renal Disease Musculoskeletal History: Reports: Hx Arthritis, Hx Rheumatoid Arthritis Denies: Hx Osteoporosis Sensory History: Reports: Hx Contacts or Glasses Denies: Hx Hearing Aid Opthamlomology History: Reports: Hx Contacts or Glasses Neurological History: Reports: Hx Migraine, Hx Transient Ischemic Attacks (TIA) Psychiatric History: Reports: Hx Anxiety Denies: Hx Panic Disorder - Cancer History Hx Chemotherapy: No Hx Radiation Therapy: No - Surgical History Surgery Procedure, Year, and Place: Oophrectomy. Knee surgery. Tonsillectomy. Lumpectomy Infectious Disease History: No Infectious Disease History: Denies: Hx Clostridium Difficile, Hx Hepatitis, Hx Human Immunodeficiency Virus (HIV), Hx of Known/Suspected MRSA, Hx Shingles, Hx Tuberculosis, Hx Known/ Suspected VRE, Hx Known/Suspected VRSA, History Other Infectious Disease, Traveled Outside the [place] in Last 30 Days - Family History Known Family History: Positive: Cardiac Disease, Hypertension - Social History Alcohol Use: Daily Alcohol Amount: 1-2 glasses of wine Substance Use Type: Reports: None Hx Tobacco Use: Yes Smoking Status (MU): Former Smoker Type: Cigarettes Amount Used/How Often: 26 years Have You Smoked in the Last Year: No Review of Systems Positive: Other - unsteady gait Positive: Chest Pain Neurological: Other - left sided facial numbness and strange sensation in the left arm. Negative: Headache, Weakness, Slurred Speech All Other Systems Reviewed And Are Negative: Yes Physical Exam - Summary Physical Exam Summary: Appearance: Well appearing, no pain distress Skin: warm, dry, reflects adequate perfusion Head/face: normal Eyes: EOMI, BEATA ENT: normal Neck: supple, non-tender Respiratory: CTA, breath sounds present Cardiovascular: RRR, pulses symmetrical Abdomen: non-tender, soft Bowel Sounds: present Musculoskeletal: normal, strength/ROM intact Neuro: normal, motor intact, A&Ox3, slightly decreased sensation of the left deltoid Triage Information Reviewed: Yes Vital Signs On Initial Exam: Initial Vitals Temp Pulse Resp BP Pulse Ox 98 F 58 16 196/99 99 10/20/17 15:01 10/20/17 15:01 10/20/17 15:01 10/20/17 15:01 10/20/17 15:01 Vital Signs Reviewed: Yes - [place] Coma Scale Best Eye Response: 4 - Spontaneous Best Motor Response: 6 - Obeys Commands Best Verbal Response: 5 - Oriented Coma Scale Total: 15 Diagnostics - Vital Signs Vital Signs Temp Pulse Resp BP Pulse Ox 10/20/17 15:26 60 18 179/100 97 10/20/17 15:01 98 F 58 16 196/99 99 - Laboratory Lab Results: Lab Results 10/20/17 Range/Units 15:24 WBC 7.1 (3.5-10.8) 10^3/ul RBC 4.14 (4.00-5.40) 10^6/ul Hgb 12.9 (12.0-16.0) g/dl Hct 38 (35-47) % MCV 92 (80-97) fL MCH 31 (27-31) pg MCHC 34 (31-36) g/dl RDW 13 (10.5-15) % Plt Count 190 (150-450) 10^3/ul MPV 10.4 (7.4-10.4) um3 Neut % (Auto) 55.3 (38-83) % Lymph % (Auto) 31.8 (25-47) % [place] % (Auto) 9.4 H (0-7) % Eos % (Auto) 2.4 (0-6) % Baso % (Auto) 1.1 (0-2) % Absolute Neuts (auto) 3.9 (1.5-7.7) 10^3/ul Absolute Lymphs (auto) 2.2 (1.0-4.8) 10^3/ul Absolute Monos (auto) 0.7 (0-0.8) 10^3/ul Absolute Eos (auto) 0.2 (0-0.6) 10^3/ul Absolute Basos (auto) 0.1 (0-0.2) 10^3/ul Absolute Nucleated RBC 0 10^3/ul Nucleated RBC % 0 Result Diagrams: 10/20/17 15:24 10/20/17 15:24 Lab Statement: Any lab studies that have been ordered have been reviewed, and results considered in the medical decision making process. - Radiology CXR Radiology Interpretation Completed By: Radiologist - No radiographic evidence for acute cardiopulmonary abnormality on this single AP view chest x-ray. Dr Boone has reviewed this report - CT CT Brain CT Interpretation Completed By: Radiologist - No intracranial mass or hemorrhage. Chronic ischemic White matter change with no change since February. Dr. Boone has reviewed this report. 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 Assembly Supervisor/Release Non-Paretic Hand: Both Correctly Best Gaze (Only Horizontal Eye Movement): Normal Visual Field Testing: No Visual Loss Facial Paresis-Pt to Smile & Close Eyes or Grimace Symmetry: Normal/Symmetrical Motor Function - Right Arm: No Drift-Holds 10 Seconds Motor Function - Left Arm: No Drift-Holds 10 Seconds Motor Function - Right Leg: No Drift-Holds 10 Seconds Motor Function - Left Leg: No Drift-Holds 10 Seconds Limb Ataxia-Must be out of Proportion to Weakness Present: Absent Sensory (Use Pinprick to Test Arms/Legs/Trunk/Face): Normal Best Language (Describe Picture, Name Items): No Aphasia Dysarthria (Read Several Words): Normal Extinction and Inattention: No Abnormality Total Score: 0 NIH Scale - NIH Scale Level of Consciousness: Alert/Keenly Responsive Ask Patient the Month and His/Her Age: Both Correct Ask Pt to Open/Close Eyes and Instrument Assembly Supervisor/Release Non-Paretic Hand: Both Correctly Best Gaze (Only Horizontal Eye Movement): Normal Visual Field Testing: No Visual Loss Facial Paresis-Pt to Smile & Close Eyes or Grimace Symmetry: Normal/Symmetrical Motor Function - Right Arm: No Drift-Holds 10 Seconds Motor Function - Left Arm: No Drift-Holds 10 Seconds Motor Function - Right Leg: No Drift-Holds 10 Seconds Motor Function - Left Leg: No Drift-Holds 10 Seconds Limb Ataxia-Must be out of Proportion to Weakness Present: Absent Sensory (Use Pinprick to Test Arms/Legs/Trunk/Face): Normal Best Language (Describe Picture, Name Items): No Aphasia Dysarthria (Read Several Words): Normal Extinction and Inattention: No Abnormality Total Score: 0 Course/Dx - Course Course Of Treatment: Patient with small areas of paresthesia after episode of vertigo with initial NIH stroke score of 0. History of patent foramen ovale on full dose aspirin. SHe took 650 mg of aspirin at home today. The pressure was elevated and jessica during her visit here requiring IV treatment with labetalol. Neurology was contacted and evaluated the patient at bedside. An MRI was recommended and he attributes these symptoms to possibly hypertension. Posterior TIA or infarct is a possibility. Patient will be admitted for further. No alteration of symptoms here. - Differential Dx Differential Diagnoses Neuro: Positive: Cerebrovascular Accident, Hypertension, Medication Reaction, Metabolic Abnormality, Transient Ischemic Attack - Diagnoses Provider Diagnoses: Facial numbness, Family history of patent foramen ovale, Hypertensive emergency - Physician Notifications Discussed Care Of Patient With: Denisha Cueva Time Discussed With Above Provider: 16:15 Instructed by Provider To: Other - I discussed patient care with Dr. Cueva and he recommended getting an MRI, If they cannot fit her in tonight then admit her and they will get one in the AM. Discharge - Sign-Out/Discharge Documenting (check all that apply): Patient Departure - Admit - Discharge Plan Condition: Guarded Disposition: ADMITTED TO [facility] Referrals: Dayanna Bell MD [Primary Care Provider] - - Billing Disposition and Condition Condition: GUARDED Disposition: Admitted to [facility] - Attestation Statements Document Initiated by Thaibmonica: Yes Documenting Scribe: Layton Browning Provider For Whom Anne-Mariee is Documenting (Include Credential): Tera Boone MD Scribe Attestation: ILayton , scribed for Tera Boone MD on 10/20/17 at 1805. Scribe Documentation Reviewed: Yes Provider Attestation: The documentation as recorded by the Layton lomax accurately reflects the service I personally performed and the decisions made by me, Tera Boone MD Consult Consult: 5:21 discussed patient care with Dr. Erickson. The patient will be admitted
--- NOTE | 2017-10-20 15:51 | RAD ---
Indication: Neurologic changes. CT brain performed without IV contrast. Ventricular structures are midline. No midline shift is noted. Central and cortical atrophy is noted. There is no evidence of intracranial mass or hemorrhage. No other high or low density lesions identified. Periventricular lucency is noted in the deep white matter in the left parietal lobe which is unchanged from previous exam and likely represents chronic ischemic change. IMPRESSION: No intracranial mass or hemorrhage. Chronic ischemic White matter change with no change since February 08, 2016.
[2017-10-20 15:58] LABS: EGFR Non-African American 76.8 (>60)
--- NOTE | 2017-10-20 16:19 | RAD ---
INDICATION: Neurologic changes COMPARISON: Most recent comparison chest x-ray is dated February 08, 2016 TECHNIQUE: Single AP view of the chest was obtained. FINDINGS: The heart and mediastinum exhibit normal size and contour. There is a mild degree of calcification overlying the arch of the aorta. The lungs are grossly clear. There is no evidence of a large pleural effusion. Visualized bones are normal for the patient's age. IMPRESSION: No radiographic evidence for acute cardiopulmonary abnormality on this single AP view chest x-ray.
[2017-10-20] MEDS ORDERED: Labetalol IV* 5 MG/ML 20 ML VIAL IV PUSH ONE (16:46)
[2017-10-20] MEDS ORDERED: Iohexol 350* (CONTRAST) 500 ML MDV IV ONE (16:58)
[2017-10-20] MEDS ORDERED: Ondansetron INJ* 2 MG/ML VIAL IV PRN (18:09)
[2017-10-20] MEDS ORDERED: Acetaminophen TAB* 325 MG PO PRN (18:09)
--- NOTE | 2017-10-20 18:18 | RAD ---
EXAM: US Duplex Bilateral Lower Extremity Veins CLINICAL HISTORY: 67 years old, female; Signs and symptoms; Other: TIA with pfo TECHNIQUE: Real-time duplex ultrasound scan of the bilateral lower extremity veins integrating B-mode two-dimensional vascular structure, Doppler spectral analysis, color flow Doppler imaging and compression. COMPARISON: US - LE VEIN BI VL LOWER EXT VEINS BILATERAL 02/09/2016 3:30 PM FINDINGS: Right deep veins: Unremarkable. No DVT in the right common femoral, femoral, proximal deep femoral or popliteal veins. The veins demonstrate normal color flow, are normally compressible, with normal phasic flow and/or augmentation response. Right superficial veins: Unremarkable. No thrombus in the visualized right great saphenous vein. Left deep veins: Unremarkable. No DVT in the left common femoral, femoral, proximal deep femoral or popliteal veins. The veins demonstrate normal color flow, are normally compressible, with normal phasic flow and/or augmentation response. Left superficial veins: Unremarkable. No thrombus in the visualized left great saphenous vein. Soft tissues: No acute findings. No popliteal cyst. IMPRESSION: Normal bilateral lower extremity duplex venous ultrasound.
[2017-10-20] MEDS ORDERED: hydrALAZINE IV* 20 MG/ML VIAL IV SLOW PU PRN (18:55)
--- NOTE | 2017-10-20 19:27 | RAD ---
EXAM: CT Angiography Head With Intravenous Contrast CLINICAL HISTORY: 67 years old, female; Signs and symptoms; Other: TIA TECHNIQUE: Axial computed tomographic angiography images of the head with intravenous contrast using CT angiography protocol. All CT scans at this facility use at least one of these dose optimization techniques: automated exposure control; mA and/or kV adjustment per patient size (includes targeted exams where dose is matched to clinical indication); or iterative reconstruction. 3D and MIP reconstructed images were created and reviewed. Coronal and sagittal reformatted images were created and reviewed. CONTRAST: 80 mL of OMNIPAQUE 350 administered intravenously. COMPARISON: No relevant prior studies available. FINDINGS: Right internal carotid artery: No acute findings. Intracranial segment is patent with no significant stenosis. No aneurysm. Right anterior cerebral artery: Unremarkable. No occlusion or significant stenosis. No aneurysm. Right middle cerebral artery: Unremarkable. No occlusion or significant stenosis. No aneurysm. Right posterior cerebral artery: Unremarkable. No occlusion or significant stenosis. No aneurysm. Right vertebral artery: Unremarkable as visualized. Left internal carotid artery: No acute findings. Intracranial segment is patent with no significant stenosis. No aneurysm. Left anterior cerebral artery: Unremarkable. No occlusion or significant stenosis. No aneurysm. Left middle cerebral artery: Unremarkable. No occlusion or significant stenosis. No aneurysm. Left posterior cerebral artery: Unremarkable. No occlusion or significant stenosis. No aneurysm. Left vertebral artery: Unremarkable as visualized. Basilar artery: Unremarkable. No occlusion or significant stenosis. No aneurysm. Sinuses: Mucosal thickening of the right maxillary sinus with near-complete opacification. IMPRESSION: No acute findings. EXAM: CT Angiography Neck With Intravenous Contrast CLINICAL HISTORY: 67 years old, female; Signs and symptoms; Other: TIA TECHNIQUE: Axial computed tomographic angiography images of the neck with intravenous contrast using CT angiography protocol. All CT scans at this facility use at least one of these dose optimization techniques: automated exposure control; mA and/or kV adjustment per patient size (includes targeted exams where dose is matched to clinical indication); or iterative reconstruction. 3D and MIP reconstructed images were created and reviewed. Coronal and sagittal reformatted images were created and reviewed. CONTRAST: 80 mL of OMNIPAQUE 350 administered intravenously. 80 mL of OMNIPAQUE 350 administered intravenously. COMPARISON: CTA HD/NK CTA HEAD/NECK 02/08/2016 11:54 PM FINDINGS: VASCULATURE: Right common carotid artery: Unremarkable. No significant stenosis. No dissection or occlusion. Right internal carotid artery: Unremarkable. Extracranial segment is patent with no significant stenosis. No dissection or occlusion. Right external carotid artery: Unremarkable. No occlusion. Right vertebral artery: Unremarkable. No significant stenosis. No dissection or occlusion. Left common carotid artery: Unremarkable. No significant stenosis. No dissection or occlusion. Left internal carotid artery: Unremarkable. Extracranial segment is patent with no significant stenosis. No dissection or occlusion. Left external carotid artery: Unremarkable. No occlusion. Left vertebral artery: Unremarkable. No significant stenosis. No dissection or occlusion. NECK: Bones/joints: No acute fracture. No dislocation. Soft tissues: Unremarkable as visualized. No mass. CAROTID STENOSIS REFERENCE USING NASCET CRITERIA: % ICA stenosis = (1 - narrowest ICA diameter/diameter of distal cervical ICA) x 100. Mild - <50% stenosis. Moderate - 50-69% stenosis. Severe - 70-94% stenosis. Near occlusion - 95-99% stenosis. Occluded - 100% stenosis. IMPRESSION: Normal neck CTA.
--- NOTE | 2017-10-20 19:42 | RAD ---
EXAM: MR Head Without Intravenous Contrast CLINICAL HISTORY: 67 years old, female; Signs and symptoms; Dizziness and numbness / parasthesia; Patient HX: Apprx 1320 today patient experienced facial numbness and dizziness. H/o previous TIA. ; Additional info: Vertigo and l sided facial/upper arm numbness TECHNIQUE: Magnetic resonance images of the head/brain without intravenous contrast in multiple planes. COMPARISON: BRAIN WO MRI BRAIN W/O 02/09/2016 12:10 PM FINDINGS: Brain: There are T2/flair hyperintensities in the periventricular region consistent with moderate chronic microvascular ischemic changes. SWI rounded signal in the left basal ganglia which may represent chronic hemorrhage versus calcification. No acute infarcts. Ventricles: Unremarkable. No ventriculomegaly. Bones/joints: Unremarkable. Sinuses: Mucosal thickening of the right maxillary sinus. No acute sinusitis. Mastoid air cells: Unremarkable as visualized. No mastoid effusion. Orbits: Unremarkable as visualized. IMPRESSION: No acute abnormality. Chronic microvascular ischemic changes. Chronic small microhemorrhage versus calcification in the left basal ganglia.
[2017-10-20 21:23] LABS: Urine Appearance Clear; Urine Blood Negative (Negative); Urine Color Straw; Urine Ketones Negative (Negative); Urine Protein Negative (Negative); Urine Red Blood Cell Absent (Absent); Urine Specific Gravity 1.036 (1.010-1.030); Urine Urobilinogen Negative (Negative); Urine White Blood Cell 1+(6-10/hpf) (Absent)
--- NOTE | 2017-10-20 21:34 | HP ---
CC: Dr. Dayanna Bell * ADMISSION HISTORY AND PHYSICAL: DATE OF ADMISSION: 10/20/17 PRIMARY CARE PROVIDER: Dr. Dayanna Bell. MY ATTENDING WHILE IN THE HOSPITAL: Dr. Louisa Freedman.* (DICTATED BY MIKAYLA ROTH) CHIEF COMPLAINT: Loss of balance, numbness. HISTORY OF PRESENT ILLNESS: Ms. Ni is a 67-year-old female with past medical history significant for hypertension, rheumatoid arthritis, TIA and PFO in February of this year, who presents to the emergency department after having sudden onset unsteadiness where she felt like the ground was moving underneath her that occurred approximately 1:15 in the afternoon today. The patient also stated that there was numbness in her jaw and down her arm on her left side. The patient stated that this lasted approximately 15 minutes. She was on her way to vote. She was unable to vote and went onto therapy; however, in the middle of her therapy session she felt what she describes as a strange sensation that swept through her whole body and made her feel profoundly at ease and not like herself. This is what prompted the patient to come to the emergency department. The patient states that on her way to the emergency department she had some chest tightness with abdominal discomfort that she does not describe directly as nausea. The patient had no nausea with her dizziness, no vertigo, no passing out, no palpitations, no overt chest pain, no shortness of breath. The patient has had no fevers and chills. No recent illnesses. No recent changes in medications. No abdominal pain, diarrhea, dysuria, or constipation. The patient states this is relatively similar to her presentation when she came in February, but is distinctly different. The patient had a headache this morning at approximately 11:30, which she took aspirin for on top of her daily aspirin of 325 for secondary prevention of TIA. The patient states that she has had blurry vision for approximately 2 weeks, but attributes this to her early stage macular degeneration with which she has been diagnosed. The patient has been under a lot of stress. Her partner is undergoing palliative care for cancer. The patient is occasionally short of breath with leaning forward; however, she has no other dyspnea on exertion, orthopnea, or swelling in her legs. The patient has no history of coronary artery disease. The patient has never had a heart attack. The patient has her blood pressure checked approximately 6 times a year at her various medical appointments and it has not been recently elevated to her knowledge. In the emergency department, her blood pressure was elevated significantly with her presenting blood pressure being 196/99 and dropping to 170/109 with labetalol. The patient was seen in consultation by Dr. Cheikh Cueva of Neurology, who recommended admission to the hospital for TIA versus hypertensive emergency and consideration for PFO closure. The patient had a CT of her head, which showed no infarct. The patient in the emergency department was given normal saline and labetalol. PAST MEDICAL HISTORY: Hypertension, rheumatoid arthritis, hypothyroidism, anxiety, transient ischemic attack, PFO, early macular degeneration. PAST SURGICAL HISTORY: Left oophorectomy, tonsillectomy, bilateral arthroscopic knee surgery, appendectomy. MEDICATIONS: 1. Zolpidem 5 mg p.o. at bedtime as needed. 2. Vitamin D 400 units p.o. daily. 3. Leucovorin 5 mg p.o. weekly. 4. Methotrexate 15 mg p.o. weekly. 5. Hydroxychloroquine 400 mg p.o. daily. 6. Aspirin 325 mg p.o. daily. 7. Levothyroxine 100 mcg p.o. daily. 8. Propranolol 60 mg p.o. daily. 9. Lisinopril 10 mg p.o. daily. 10. Atorvastatin 10 mg p.o. daily. 11. Clonazepam 0.5 mg b.i.d. as needed. 12. Tylenol 650 mg p.o. q.8 hours as needed. 13. Omeprazole 40 mg p.o. daily as needed. 14. Vitamin D 1000 units p.o. daily. 15. Vitamin B12 3000 units p.o. daily. 16. Voltaren 1% gel b.i.d. as needed. ALLERGIES: No known drug allergies. FAMILY HISTORY: The patient's mother of metastatic breast cancer. The patient's father of lung cancer. The patient's sister of lung cancer. The patient has a strong family history for heart disease on her father' s side. SOCIAL HISTORY: The patient used to smoke, quitting approximately 26 years ago after smoking for 20 years. The patient drinks approximately 1 to 1-1/2 glasses of red wine daily. The patient denies any illicit drug use. 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 The patient is and has 1 adopted child. The patient's surrogate decision maker will be her , Shakila Tillman. REVIEW OF SYSTEMS: A 14-point review of systems was reviewed and is negative except as above in the HPI. PHYSICAL EXAMINATION GENERAL: The patient is a 67-year-old female, who appears stated age and sitting comfortably in bed, in no acute distress. VITAL SIGNS: At the time of evaluation, temperature 97.8, pulse rate 54, respiratory rate 16, oxygen saturation 99% on room air, blood pressure 170/109. HEENT: Head: Normocephalic, atraumatic. Sclerae anicteric. No conjunctival injection. Nasal mucosa moist. Oral mucosa moist. No pharyngeal erythema, discharge, or exudate. NECK: Supple, nontender. No lymphadenopathy. No carotid bruits auscultated. No JVD. RESPIRATORY: Clear to auscultation bilaterally. No wheezes, rales, or rhonchi. Good air exchange bilaterally. CARDIAC: Regular rate and rhythm. No clicks, murmurs, gallops, or rubs. Pulses are 2+ in the bilateral dorsalis pedis, posterior tibial, and radial areas. No bilateral lower extremity edema noted. No bilateral calf tenderness. ABDOMEN: Soft, nontender, nondistended. Bowel sounds present and normoactive in all 4 quadrants. No hepatosplenomegaly. No abdominal bruits auscultated. No hepatojugular reflux. NEURO: Cranial nerves II through XII intact. No residual dysesthesias on the side of the patient's face. Strength is 5/5 in the bilateral upper and lower extremities distally and proximally. Sensation to light touch equal in the bilateral upper and lower extremities distally and proximally. Cerebellar testing performed without difficulty. Rapid alternating movements performed without difficulty. Reflexes are 2+ in the bilateral biceps and patellar areas , 1+ in the bilateral Achilles areas. Babinski is downgoing bilaterally. PSYCHIATRIC: Pleasant and cooperative. SKIN: Clean, dry, intact. No rash. LABORATORY DATA: White blood cell count 7.1, hemoglobin 12.9, platelet count 190. INR of 0.92, APTT of 24.8. Sodium 140, potassium 4.2, chloride 109, carbon dioxide 23, anion gap of 8, BUN 22, creatinine 0.75, glucose 103, lactic acid 0.7, calcium 9.1. Bilirubin 0.3, AST 20, ALT 21, alkaline phosphatase 83. Troponin I of 0.00. Protein 6.9, albumin 4.3, globulin 2.6. Triglycerides 133 , cholesterol 164, LDL cholesterol 72, HDL cholesterol 65. B12 greater than 1450, folate greater than 20. TSH 0.53, free T4 1.1. STUDIES DONE WHILE IN THE HOSPITAL: Electrocardiogram shows normal sinus rhythm , rate of 58, QTc of 433, minimal ST elevation likely representing early repolarization in V1. No ST segment abnormalities. Possible left atrial enlargement. No other hypertrophy or enlargement. Normal axis. Brain CT read as no intracranial mass or hemorrhage, chronic ischemic white matter changes. Chest x-ray read as no radiographic evidence for acute cardiopulmonary abnormality. Venous Doppler study read as normal venous Doppler study of the bilateral lower extremities. Read on CTA and brain MRI is pending at this time. ASSESSMENT AND PLAN/IMPRESSION: Ms. Ni is a 67-year-old female with past medical history significant for hypertension, previous transient ischemic attack with patent foramen ovale, as well as rheumatoid arthritis, who presents to the emergency department after several nondescript neurological events today including dizziness, unilateral numbness, headache and a general feeling of unwellness, who presents to the emergency department with severely elevated blood pressure. The patient will be admitted to the hospital for control of her blood pressure and evaluation for transient ischemic attack. 1. Hypertensive urgency versus transient ischemic attack. The patient previously had a transient ischemic attack not in the setting of hypertensive urgency. The patient's neurological deficits are similar to this time as they were before. The patient received labetalol while in the emergency department with good effect. Control of the patient's blood pressure in the setting of acute stroke has been discussed with Dr. Cheikh Cueva of Neurology and a goal of systolic 150 to 180 has been established. Hold parameters as well as hydralazine as needed have been established for this patient. The patient does not need to go to the ICU for titratable drip at this time. The patient may necessitate fluid administration in order to maintain this blood pressure range. The patient will be continued on her aspirin and atorvastatin. The patient had an excellent lipid profile. Based on the patient's MRI results, dual antiplatelet therapy will be considered. The patient will have her neuro checks. We will have her Ambien and clonazepam held to avoid distorting her neurological checks. The patient's B12, folate, and TSH were normal. The patient has a brain MRI and CTA pending, which will dictate treatment. The patient has no current neurological deficits. Cardiology will be consulted for evaluation of patent foramen ovale and possible closure due to recurrent cerebral ischemia. 2. Chest tightness. The patient had an episode of chest tightness in the setting of severely elevated blood pressure. The patient had initial troponin, which was 0 and a nonischemic EKG. The patient will have troponins x3 and an EKG in the morning. The patient is having risk stratification done in the setting of screening for risk factors for embolic stroke. Patient's primary prevention of myocardial infarction should be continued. 3. Rheumatoid arthritis. We will hold methotrexate and leucovorin while in the hospital. The patient is to resume these on her weekly schedule at home. Continue Plaquenil while in the hospital. 4. Hypothyroidism. Continue on levothyroxine. 5. Anxiety. The patient will have anxiety treated with supportive care and medications as needed; however, she will not have standing clonazepam at this time due to neuro checks. 6. FEN: The patient will be n.p.o. after midnight for the possibility of ROCIO in the morning, which will be discussed with Cardiology at that time. 7. DVT prophylaxis: The patient will have heparin subcu. The patient did not have a deep venous thrombosis on her current exam. The patient will be encouraged to ambulate frequently. 8. Code status: The patient would like to be a full code. The patient's surrogate decision maker will be her as above. 9. Disposition: The patient is admitted to observation for transient ischemic attack. TIME SPENT: Approximately 60 minutes were spent on admission of this patient, 30 of which was spent [id number] with the patient obtaining history and physical and discussing treatment plan. The plan was discussed with my attending , Dr. Louisa Freedman, as well as Dr. Cheikh Cueva of Neurology and they are in agreement. MIKAYLA ROTH [id number]/[facility] #: [id number] NIRAV
[2017-10-20] MEDS: Heparin VIAL(*) 5000 UNITS/ML VIAL (FIVE THOUSAND) SUBCUT SCH (22:16)
[2017-10-20] MEDS ORDERED: Zolpidem TAB* 5 MG PO PRN (22:24)
--- NOTE | 2017-10-20 23:38 | CONS ---
CC: Dr. Bell * CONSULTATION REPORT: DATE OF CONSULT: 10/20/17 LOCATION: Current location is ER, bed 18. PRIMARY CARE PHYSICIAN: Dr. Bell. REASON FOR CONSULT: History of TIA/stroke with new numbness. HISTORY OF PRESENT ILLNESS: Ms. Ni is a very nice 67-year-old female with a history of hypertension, rheumatoid arthritis, hypothyroidism, and anxiety, as well as history of a prior stroke in February of 2016, at which point she was admitted to the hospital and seen by Dr. Adam Moore of Neurology. She was also diagnosed with dyslipidemia at that time. She was discharged home on aspirin 325 mg a day, Zetia, and on blood pressure medications. She initially presented to the hospital then with acute onset of a whirling sensation in her head and then her left lip and chin started to tingle and went numb. She also felt a strange sensation in her left arm. At that time, she was brought to the hospital. CT of the brain showed chronic disease, but no acute abnormality. Head and neck CT angiogram showed no major stenosis or occlusions, no aneurysms. MRI the next day showed chronic white matter disease, but no acute DWI changes to suggest an infarct. She did subsequently have a transthoracic echocardiogram, which showed an ejection fraction of 55% to 60%. Patent foramen ovale was demonstrated by agitated contrast as well as an atrial septal aneurysm. She had bilateral lower extremity Dopplers with no evidence of right or left deep venous thrombosis. It was recommended that she start aspirin 325 mg, which she has been taking. She states that the deficits of left face numbness have never completely resolved and persist to this date. She notes today she was going to vote at around 11:30 when she suddenly felt uneasy on her feet. She denied any vertigo. She denied any vision loss or vision changes. She denied any severe headache at that time. She denied any nausea or vomiting. She stood still for a minute and subsequently started to develop more numbness and tingling in her left jaw and also some numbness and tingling down her left arm not involving the entire arm. These symptoms persisted. She went on to vote and then went to a therapy appointment, at which point, the symptoms continued. She noticed an unusual feeling in her body and some pressure in her chest and based on that she came to the ER. In the ER, a CT of the head was done and showed no acute changes, chronic microvascular changes noted, but no changes since 02/08/16. In the ER, blood pressures have been running high 170s to 190s over low 100s. She states that the symptoms have persisted in the ER and have not improved, although the chest pressure seems to have improved some. Again, she denies any current headache, any nausea or vomiting, any vision changes or vision loss. No hearing changes. She denies any focal weakness. She denies any right-sided findings. She has had no falls. She did not fall today, although she felt unsteady and she was able to ambulate to the bathroom without difficulty. Her states that she has been under a great deal of stress and that the blood pressures that she has currently are higher than normal. She states that she has been taking her medications regularly and has not missed them. She notes that she did see a photographer news as an outpatient one time, but no further intervention was done. She has otherwise been in her usual state of health. She denies any recent illnesses, fevers, chills, night sweats. No problems swallowing or speaking. PAST MEDICAL HISTORY: As noted above. CURRENT MEDICATIONS: Include: 1. Ambien 5 mg at bedtime. 2. Propranolol 60 mg daily. 3. Methotrexate 2.5 mg weekly. 4. Lisinopril 10 mg daily. 5. Synthroid 100 mcg daily. 6. Leucovorin 5 mg weekly. 7. Plaquenil 400 mg daily. 8. Calciferol 400 units p.o. daily. 9. Lipitor 10 mg daily. 10. Aspirin 325 mg daily. ALLERGIES: No known drug allergies. FAMILY HISTORY: Mother with breast cancer with lung metastases, father with lung cancer, and a sister with lung cancer. SOCIAL HISTORY: She was a previous smoker, but quit at age 41. She has occasional alcohol use, not heavy. She does not use any recreational drugs. Self-employed and . Her is her healthcare proxy. REVIEW OF SYSTEMS: Review of systems in 14-organ systems as noted above, otherwise negative. PHYSICAL EXAM: Vital Signs: Current temperature 97.8, pulse rate of 54, respiratory rate of 16, pulse ox of 99%, blood pressure 170/109. She has regular rate and rhythm on tele. On general exam, HEENT: She is normocephalic , atraumatic. Sclerae are anicteric. Mucous membranes are moist. The oropharynx is clear. Nares are patent. Neck is supple. No thyromegaly. No carotid bruits. No meningismus. Chest: Clear to auscultation bilaterally. Cardiovascular is regular rate and rhythm. Abdomen is nontender, nondistended. Extremities: No clubbing, cyanosis, or edema. There is no erythema. There are no cords in her legs. No swelling in her legs. Her skin is warm and dry. On neurologic exam, she is awake, alert, and oriented x3. Her speech is fluent. There is no dysarthria. Repetition is intact. Recall of recent and remote events is intact. Vocabulary is intact. Her mood is dysthymic. Affect, mood congruent. Cranial nerves II through XII: Pupils are equally round and reactive to light and accommodation. Extraocular muscles are intact without nystagmus or diplopia. There is no ptosis noted. Facial sensation, she has some diminished sensation to light touch and pinprick in the left jaw similar to a V3 distribution. This she states is characteristic of her normal deficit, but may be slightly worse. Her face is symmetric. There is no weakness. Her hearing is intact bilaterally. Palate raises symmetrically with the midline uvula. Tongue is symmetric and midline. Sternocleidomastoid and trapezius are 5/5. Motor Exam: She is spontaneously raising all extremities antigravity 5/5 with good tone and bulk. There is no drift in the upper or lower extremities. DTRs are 2+ and symmetric in the upper and lower extremities with downgoing Babinski's. [id number] and rapid alternating movements are intact without tremors. There are no resting tremors noted. [id number] is intact. Sensation is intact to light touch and pinprick. There are no deficits. There is no extinguishing to double simultaneous stimulation. Gait: She was able to stand. She is steady with her eyes closed. She is able to walk a few steps. Her gait appears relatively normal. DIAGNOSTIC STUDIES/LAB DATA: CBC with diff shows a monocyte percent of 9.4, which is elevated, otherwise normal. INR of 0.92. PTT of 24.8. Her chemistry today shows a BUN/creatinine ratio of 29.3 and glucose of 103, otherwise normal. Lactic acid 0.7. Triglycerides 133, cholesterol 164, LDL of 72, HDL of 65. Studies: CT scan of the brain as noted above. She also had a chest x-ray done. No active cardiopulmonary disease. Single view. ASSESSMENT AND PLAN: Ms. Ni is a 67-year-old female with a history of hypertension, hyperlipidemia, rheumatoid arthritis, a prior stroke with patent foramen ovale and atrial septal aneurysm, on aspirin 325 mg, on statin at home and blood pressure medications, presents to the hospital with acute worsening of her previous symptoms including left face numbness and left arm numbness. The left arm numbness has improved some. She initially had some chest pressure as well that seems to have improved. She presented with elevated blood pressures in the ER. At this point, given the fact that her symptoms are similar in nature to her prior presentation, my suspicion for a new stroke or transient ischemic attack is low. With that said, she has a complicated history including a patent foramen ovale with an atrial septal aneurysm. I do not think that we can assume that she has not had a transient ischemic attack. Certainly with blood pressures running where they are, she could be having some hypertensive urgency or emergency and that could bring out some of her old stroke like symptoms. In addition, she has also had some chest pressure, which is at least concerning. I defer to Medicine to rule out for any cardiac issues. At this point, I do think admission is warranted to rule out any new stroke and to reevaluate her heart. The plan is to admit her, get an MRI of the brain, get a CT angiogram of the head and neck, repeat an echocardiogram transthoracic, and get Cardiology to see her and recommend whether or not they think she needs a ROCIO or whether the TTE is sufficient. For now, I will continue her aspirin 325 mg. I would control her blood pressure trying to bring it down slowly. I would continue her statin, consider increasing it to 20 mg. Her LDL is almost within goal. Monitor her on telemetry for any evidence of arrhythmia. I am going to get a lower extremity Doppler to rule out any deep venous thrombosis, which I have a low suspicion for. If her workup is negative and there is no evidence of new stroke, this is likely unmasking of old symptoms possibly or likely related to her elevated blood pressures. I defer to Cardiology regarding additional workup for her patent foramen ovale and any additional recommendations regarding anticoagulation. I will continue to follow her closely and make further recommendations as necessary. Thank you for the opportunity to participate in the care of this very nice patient. [id number]/[facility] #: [id number] NIRAV
[2017-10-21] MEDS: Heparin VIAL(*) 5000 UNITS/ML VIAL (FIVE THOUSAND) SUBCUT SCH ×2 (05:56→14:12)
[2017-10-21] MEDS ORDERED: Levothyroxine TAB* 100 MCG TAB PO SCH (06:00)
[2017-10-21 06:06] LABS: ABS Basophils 0 10^3/ul (0-0.2); ABS Eosinophils 0.2 10^3/ul (0-0.6); ABS Lymphocytes 2.3 10^3/ul (1.0-4.8); ABS Monocytes 0.5 10^3/ul (0-0.8); ABS Neutrophils 3.8 10^3/ul (1.5-7.7); ABS Nucleated RBC 0 10^3/ul; Eosinophil % 2.6 % (0-6); Hematocrit 38 % (35-47); Hemoglobin 12.8 g/dl (12.0-16.0); Lymphocyte % 33.3 % (25-47); Mean Corpuscular HGB Conc 33 g/dl (31-36); Mean Corpuscular Hemoglobin 31 pg (27-31); Mean Corpuscular Volume 93 fL (80-97); Mean Platelet Volume 10.4 um3 (7.4-10.4); Nucleated Red Blood Cells % 0.1; Platelet Count 160 10^3/ul (150-450); Red Blood Count 4.14 10^6/ul (4.00-5.40); Red Cell Distribution Width 13 % (10.5-15); White Blood Count 6.8 10^3/ul (3.5-10.8)
[2017-10-21 06:22] LABS: EGFR Non-African American 97.5 (>60)
--- NOTE | 2017-10-21 07:50 | PN ---
Subjective Date of Service: 10/21/17 Length of Stay: 1 Days Neurology is following for the evaluation and management of TIA vs. Stroke vs. HTN urgency Interval History: No new issues overnight. No Tele events. Sinus Clifford. Blood pressures have been better. She did not sleep well but otherwise, no changes. Continues to have some numbness in the left jaw area. Arm numbness is better. No further chest pressure or pain. No significant headaches. No vision changes, difficulty speaking or swallowing, focal numbness, tingling or weakness, gait abnormalities, dizziness or vertigo. Troponins 0.0 X 3 Studies: MRI Brain: No acute abnormality. Chronic changes. Chronic small microhemorrhage vs. calcification in the left BG CTA: No significant stenosis, plaques, aneurysms Venous U/S Legs: No DVT Echo: Pending Objective Active Medications: Acetaminophen (Tylenol Tab*) 650 mg PO Q6H PRN PRN Reason: FEVER/PAIN Aspirin (Aspirin Tab*) 325 mg PO DAILY [facility] Atorvastatin Calcium (Lipitor*) 10 mg PO DAILY [facility] Cholecalciferol (Vitamin D Tab*) 400 unit PO DAILY [facility] Heparin Sodium (Porcine) (Heparin Vial(*)) 5,000 units SUBCUT Q8HR [facility] Last Admin: 10/21/17 05:56 Dose: 5,000 units Hydralazine HCl (Apresoline Iv*) 5 mg IV SLOW PU Q4H PRN PRN Reason: SYSTOLIC BP GREATER THAN: Hydroxychloroquine Sulfate (Plaquenil Tab*) 400 mg PO DAILY [facility] Levothyroxine Sodium (Synthroid Tab*) 100 mcg PO DAILY@0600 [facility] Last Admin: 10/21/17 05:56 Dose: 100 mcg Ondansetron HCl (Zofran Inj*) 4 mg IV Q6H PRN PRN Reason: NAUSEA Propranolol HCl (Inderal La Cap*) 60 mg PO DAILY [facility] Vital Signs 10/20/17 10/20/17 10/20/17 15:01 15:11 15:12 Temperature 98 F Pulse Rate 58 63 60 Respiratory 16 Rate Blood Pressure 196/99 192/108 (mmHg) O2 Sat by Pulse 99 98 98 Oximetry 10/20/17 10/20/17 10/20/17 15:14 15:26 15:48 Temperature Pulse Rate 59 60 Respiratory 18 18 Rate Blood Pressure 179/100 179/100 186/108 (mmHg) O2 Sat by Pulse 98 97 Oximetry 10/20/17 10/20/17 10/20/17 15:50 16:00 16:03 Temperature 97.8 F Pulse Rate 54 Respiratory 20 16 Rate Blood Pressure 171/112 170/109 (mmHg) O2 Sat by Pulse 99 Oximetry 10/20/17 10/20/17 10/20/17 16:12 16:43 16:44 Temperature Pulse Rate Respiratory 29 24 20 Rate Blood Pressure 136/91 185/124 194/103 (mmHg) O2 Sat by Pulse Oximetry 10/20/17 10/20/17 10/20/17 17:00 17:49 18:37 Temperature Pulse Rate 57 Respiratory 19 14 14 Rate Blood Pressure 161/98 (mmHg) O2 Sat by Pulse 97 Oximetry 10/20/17 10/20/17 10/20/17 18:45 18:46 18:49 Temperature Pulse Rate 59 60 59 Respiratory Rate Blood Pressure 208/105 181/101 (mmHg) O2 Sat by Pulse 98 96 97 Oximetry 10/20/17 10/20/17 10/20/17 19:00 20:00 21:58 Temperature 98.4 F 98.4 F Pulse Rate 58 54 56 Respiratory 20 14 Rate Blood Pressure 158/87 161/98 (mmHg) O2 Sat by Pulse 97 100 97 Oximetry 10/20/17 10/21/17 23:26 03:28 Temperature Pulse Rate 54 52 Respiratory 20 20 Rate Blood Pressure 140/76 157/90 (mmHg) O2 Sat by Pulse 100 98 Oximetry Intake and Output Last 24 Hours 10/19/17 10/20/17 10/21/17 10/22/17 06:59 06:59 06:59 06:59 Intake Total 1000 Balance 1000 Weight 157 lb 14.4 oz Intake: IV Fluids 1000 Oral 0 Other: # Bowel Movements 0 Oxygen Devices in Use Now: None Neurology Exam: General: HEENT: Normocephalic/atraumatic, sclera anicteric, mucous membranes moist Neck: Supple, no bruits Chest: Clear to auscultation bilaterally Cardiovascular: Regular rate and rhythm without murmurs, rubs, gallops Abdomen: Soft, nontender/nondistended Extremities: No clubbing, cyanosis, or edema. No erythema or cords/swelling in the legs bilaterally Neurological Findings: Awake, Alert, Oriented x3 Speech: fluent without dysarthria, repetition intact Cranial Nerve: PEERL, EOM intact, VFF, no nystagmus, face symmetric bilaterally , facial sensation with mild decreased sensation in the left jaw (baseline), hearing intact to finger rub bilaterally, palate elevates symmetrically, tongue midline Motor: 5/5 throughout, proximal and distal extremities x4 tone/bulk normal. No drift Sensation: intact to LT/PP bilaterally upper and lower extremities Deep Tendon Reflex: 2+ symmetric in the upper/lower extremities, Babinski - equivocal Finger to nose, rapid alternating movements intact without tremor Result Diagrams: 10/21/17 05:51 10/21/17 05:51 Additional Lab and Data: Lab Results 10/20/17 Range/Units 15:24 WBC 7.1 (3.5-10.8) 10^3/ul RBC 4.14 (4.00-5.40) 10^6/ul Hgb 12.9 (12.0-16.0) g/dl Hct 38 (35-47) % MCV 92 (80-97) fL MCH 31 (27-31) pg MCHC 34 (31-36) g/dl RDW 13 (10.5-15) % Plt Count 190 (150-450) 10^3/ul MPV 10.4 (7.4-10.4) um3 Neut % (Auto) 55.3 (38-83) % Lymph % (Auto) 31.8 (25-47) % Otoe % (Auto) 9.4 H (0-7) % Eos % (Auto) 2.4 (0-6) % Baso % (Auto) 1.1 (0-2) % Absolute Neuts (auto) 3.9 (1.5-7.7) 10^3/ul Absolute Lymphs (auto) 2.2 (1.0-4.8) 10^3/ul Absolute Monos (auto) 0.7 (0-0.8) 10^3/ul Absolute Eos (auto) 0.2 (0-0.6) 10^3/ul Absolute Basos (auto) 0.1 (0-0.2) 10^3/ul Absolute Nucleated RBC 0 10^3/ul Nucleated RBC % 0 Assessment/Plan 67 year old with a history of HTN, Hyperlipidemia, RA, hypothyroidism, prior stroke/tia in 2017. Known PFO on ASA 325mg, presented with symptoms similar to prior presentation in 2017 (worsened jaw paresthesia/numbness, left arm numbness ) as well as some chest discomfort, significantly elevated BPs. Symptoms have returned to baseline overnight. I suspect HTN urgency/emergency rather than TIA as the symptoms were in the same distribution and her blood pressures were significantly elevated. Her workup as noted in HPI is negative, awaiting results of TTE. --Given the fact that TIA is in the differential, in the setting of TIA and this is second recorded event, I do think cardiology input is appreciated to help guide need for further anticoagulation. My suspicion is low for new TIA/ stroke and she may need to continue ASA only but I would like cards input. --Continue ASA 325 for now, continue Statin, goal LDL <70, can adjust as outpatient. Continue BP control --Non-smoker, non-diabetic If her echo is ok, her blood pressure has stabilized and cards feels there is no need for further evaluation/treatment, then I think it is ok for her to go home this afternoon. I instructed her to return to ER immediately should she develop any new symptoms. She has decided to defer a trip to [facility] this weekend given recent events. I would like to see her back in my clinic in 6-8 weeks for follow up.
[2017-10-21] MEDS ORDERED: Cholecalciferol TAB* 400 UNIT PO SCH (09:00)
[2017-10-21] MEDS ORDERED: Propranolol LA CAP* 60 MG PO SCH ×2 (09:00)
[2017-10-21] MEDS ORDERED: Hydroxychloroquine TAB* 200 MG PO SCH (09:00)
[2017-10-21] MEDS ORDERED: Aspirin TAB* 325 MG PO SCH (09:00)
[2017-10-21] MEDS ORDERED: Lisinopril TAB* 10 MG PO SCH ×2 (09:00)
[2017-10-21] MEDS ORDERED: Atorvastatin* 10 MG TAB PO SCH (09:00)
--- NOTE | 2017-10-21 12:29 | ECHO ---
Patient: DEBORAH LEDESMA [facility] Rec#: [id number] : 1950 Date: 10/21/2017 Age: 67y Height: 155 cm / 61.0 in Weight: 71.36 kg / 157.3 lbs Sex: F BSA: 1.71 Room#: [facility] Admit Date#: 10/20/2017 Type: Inpatient Referring: Cheikh Cueva Reading: Rubens Cobian MD Automatic Pilot Mechanic: Lorenza Sandoval RDCS CC: Dayanna Bell MD Transthoracic Echocardiogram Indication: TIA, hypertensive urgency. BP: 157/90 HR: 51 Rhythm: Bradycardia Findings History: HTN, RA, TIA, PFO, former smoker. Technical Comments: The study quality is fair. Completed at 0845. Left Ventricle: The left ventricular chamber size is normal. Mild concentric left ventricular hypertrophy is observed. There is a prominent septal knuckle. Global left ventricular wall motion and contractility are within normal limits. There is normal left ventricular systolic function. The estimated ejection fraction is 55-60%. Abnormal left ventricular diastolic function is observed. There is an E to A reversal in the mitral valve flow pattern suggestive of diastolic dysfunction. Left Atrium: The left atrial chamber size is normal. Right Ventricle: The right ventricular cavity size is normal. The right ventricular global systolic function is normal. Right Atrium: The right atrial cavity size is normal. A patent foramen ovale is visualized. A patent foramen ovale is demonstrated by color Doppler. 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 Aortic Valve: The aortic valve is trileaflet. The aortic valve leaflets are mildly thickened. There is a trace of aortic regurgitation. There is no evidence of aortic stenosis. Mitral Valve: The mitral valve leaflets are mildly thickened. There is trace to mild mitral regurgitation. There is no evidence of mitral stenosis. Tricuspid Valve: The tricuspid valve leaflets are normal. There is trace to mild tricuspid regurgitation. The right ventricular systolic pressure is estimated at 22 mmHg. No pulmonary hypertension is noted. There is no tricuspid stenosis. Pulmonic Valve: The pulmonic valve appears normal. There is mild pulmonic regurgitation. There is no pulmonic stenosis. Pericardium: There is no significant pericardial effusion. A pericardial fat pad is visualized. Aorta: There is mild dilatation of the ascending aorta. There is no dilatation of the aortic arch. The aortic root is normal in size. Pulmonary Artery: The main pulmonary artery appears normal. Venous: The inferior vena cava appears normal in size. There is a greater than 50% respiratory change in the inferior vena cava dimension. Summary: There are no significant changes when compared to the previous study done on 02/08/2016, no overt sig changes. Bubble study was performed then and showed R-L PFO shunt. Conclusions The left ventricular chamber size is normal. Mild concentric left ventricular hypertrophy is observed. There is normal left ventricular systolic function. The estimated ejection fraction is 55-60%. There is an E to A reversal in the mitral valve flow pattern suggestive of diastolic dysfunction. A patent foramen ovale is demonstrated by color Doppler. 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 There is a trace of aortic regurgitation. There is trace to mild mitral regurgitation. There is trace to mild tricuspid regurgitation. No pulmonary hypertension is noted. There is mild pulmonic regurgitation. There is mild dilatation of the ascending aorta. There are no significant changes when compared to the previous study done on 02/08/2016, no overt sig changes. Bubble study was performed then and showed R-L PFO shunt. Measurements Name Value Normal Range RVIDd (AP) 2D 2.4 cm (0.9 - 2.6) RVDdMajor (2D) 4.2 cm (2.2 - 4.4) RAd ISD 4CH 4.9 cm (3.4 - 4.9) RA (A4C)W 3.5 cm (2.9 - 4.6) IVSd (2D) 1.1 cm (0.6 - 1) LVPWd (2D) 1.1 cm (0.6 - 1) LVIDd (2D) 3.7 cm (3.6 - 5.4) LVIDs (2D) 2.5 cm - LV FS (2D) 31 % (25 - 45) Aortic Annulus 1.9 cm (1.4 - 2.6) Ao root diameter (2D) 3 cm (2.1 - 3.5) Ascending Ao 4 cm (2.1 - 3.4) Aortic arch 2.9 cm (1.8 - 3.4) LA dimension (AP) 2D 3.4 cm (2.3 - 3.8) LAd ISD 4CH 5 cm (2.9 - 5.3) LA ISD 4CH W 4 cm (2.5 - 4.5) Name Value Normal Range LA ESV BP (A/L) index 30 ml/m2 - Name Value Normal Range MV E-wave Vmax 0.5 m/sec - MV deceleration time 289 msec - MV A-wave Vmax 0.7 m/sec - MV E:A ratio 0.7 ratio - LV septal e' Vmax 0.05 m/sec - LV lateral e' Vmax 0.07 m/sec - LV E:e' septal ratio 10 ratio - LV E:e' lateral ratio 7.14 ratio - Name Value Normal Range AV Vmax 1.2 m/sec - AV VTI 25.4 cm - AV peak gradient 5 mmHg - AV mean gradient 2 mmHg - LVOT Vmax 1.1 m/sec - LVOT VTI 24 cm - LVOT peak gradient 5 mmHg - LVOT mean gradient 2 mmHg - TOY Vmax 0.8 m/sec - Name Value Normal Range TR Vmax 2.2 m/sec - TR peak gradient 19 mmHg - RAP 3 mmHg - RVSP 22 mmHg - IVC diameter 1.9 cm - Name Value Normal Range PV Vmax 0.7 m/sec - PV peak gradient 2 mmHg -
[2017-10-21] MEDS ORDERED: Rivaroxaban TAB(*) 20 MG TAB PO ONE (15:00)
[2017-10-21 16:02] VITALS: BP 145/80
--- NOTE | 2017-10-22 03:15 | CONS ---
CC: Hospitalist Service; Dr. Cobian; Dr. Cueva, Neurology; Dr. Bell CARDIOLOGY CONSULT: DATE OF CONSULT: 10/21/17. HISTORY OF PRESENT ILLNESS: I was asked by hospitalist service to see this 67-year- old female patie nt, who presented to the hospital for numbness and loss of balance. She does have a known history of TIA in February 2016, at that time, she had done echo showed preserved left ventricular systolic funct ion with a patent foramen ovale documented by a bubble study. She does have a history of systemic ar terial hypertension and rheumatoid arthritis. Because of her recurrent symptoms, she was hospitalize d after consultation with Dr. Cueva from Neurology standpoint. She had a CT of the head, which showed no infarcts. She was found to have significantly elevated blood pressure in the 200 range systolic. Her blood pressure is not well controlled. She gives no symptoms of chest pain. No irregularities . She felt some palpitations. No fever. No chills. No nausea, no vomiting, no hematochezia, no sk in rash, no abdominal pain, no syncope is appreciated. Her review of all other systems is essentiall y negative. She did receive labetalol in the emergency room. She was in sinus rhythm. She had no h istory of myocardial infarction. No history of congestive heart failure. No history of congenital h eart disease. No history of diabetes mellitus, and no history of hyperlipidemia. She feels much bet ter. Her old symptom lasted for a few minutes according to the patient. She had an echocardiogram t coral that documented to have interatrial septal aneurysm with a small color flow consistent with PFO, patent foramen ovale. PAST MEDICAL HISTORY: Include rheumatoid arthritis, systemic arterial hypertension, hypothyroidism, anxiety, TIA in the past, PFO. PAST SURGICAL HISTORY: Left oophorectomy, tonsillectomy, bilateral arthroscopic knee surgery, and ap pendectomy. MEDICATIONS: 1. Vitamin D 1000 units daily. 2. Methotrexate. 3. Aspirin 325 mg daily. 4. Levothyroxine 100 mcg daily. 5. Propranolol 60 mg daily. 6. Lisinopril 10 mg daily. 7. Lipitor 10 mg daily. 8. Omeprazole 40 mg daily. 9. Vitamin B12 of 3000 units daily. ALLERGIES: No known drug allergies. FAMILY HISTORY: No family history of premature coronary artery disease. SOCIAL HISTORY: She used to smoke. She quit 26 years ago. She did smoke for about 26 years. She d rinks about 1 glass of wine daily. No history of illicit drug use. REVIEW OF SYSTEMS: Her review of all other systems is essentially negative. PHYSICAL EXAM: On exam, she is awake, alert, and oriented. She is not in acute distress. Her vital s today showed blood pressure 145/80, pulse 51, sinus, temperature 98.2, respiratory rate is 20. Hea d and Neck Exam: Normocephalic, atraumatic head. Ear, nose, and throat, essentially benign. Neck: Supple. JVP is not elevated. No carotid bruit. No masses in the neck is appreciated. Chest: Pilar r to auscultation. No rales, no wheezes, no added sounds appreciated. Heart: Normal, regular S1, S2 . No added sounds. No gallops, no rubs. Abdomen: Benign, soft. Positive bowel sounds. Extremiti es: No edema, no cyanosis, no clubbing. Skin exam is normal. Psych: Normal affect and mood. PRODUCT SUPPORT REPRESENTATIVE: No focal deficit is appreciated. DIAGNOSTIC STUDIES/LAB DATA: Her labs showed, her white blood cell 6.8, hemoglobin 12.8, hematocrit 38, and platelets 160. Chemistry showed sodium 141, potassium 3.7, chloride 110, total CO2 of 23, BU N 13, creatinine 0.61. TSH 0.53. Her EKG showed the patient to be in normal sinus rhythm. Heart rate 57 beats per minute. No signifi cant ST-T changes appreciated. Her QTc is normal at 445 milliseconds. HI normal at 166 milliseconds . IMPRESSION: The patient is a 67-year-old female with: 1. Presentation with transient ischemic attack with significantly elevated hypertension with hyperte nsive urgency. 2. Recurrent transient ischemic attack. First one was in February 2016. 3. Documented patent foramen ovale by echocardiogram in February 2016 and today, 10/21/17. 4. Systemic arterial hypertension, uncontrolled. 5. Remote history of tobacco consumption. 6. Normal left ventricular systolic function. 7. Rheumatoid arthritis. PLAN/RECOMMENDATIONS: I had a lengthy talk and discussion with the patient herself as well as with Pankaj Cueva and Hospitalist Service about this patient given the hypertensive urgency, given recurrent TI A, given the documented PFO, I do recommend anticoagulation stronger than aspirin. We discussed Coum fidencio, we discussed NOAC, and definitely it is recommended. Definitely also a transesophageal echo as an outpatient will be helpful to evaluate for any evidence of a clot in the left atrium, left atrial appendage as well as evaluate the interatrial shunt more closely. She is to avoid significant alcoh ol, caffeinated drinks, and stimulants. She will start low-salt, low-fat diet. She is to have strict control for her blood pressure that is very important actually at the present time. She is to viki nue aggressive lifestyle modification. At some point, we will discuss referral to structural heart d [place] for consideration for closure of the patent foramen ovale given recurrence of her TIAs. I ans wered all her concerns and questions up to her satisfaction. TIME SPENT: More than half of at least 60 to 65 plus minutes was in the education, counseling mode, [id number] answering all of the above, and making further recommendations. [id number]/[facility] #: [id number]
[2017-10-22] MEDS ORDERED: Aspirin TAB* 325 MG PO SCH (09:00)
--- NOTE | 2017-10-23 00:09 | DS ---
CC: Dr. Dayanna Bell * DISCHARGE SUMMARY: DATE OF ADMISSION: 10/20/17 DATE OF DISCHARGE: PRIMARY CARE PROVIDER: Dayanna Bell MD MY ATTENDING WHILE IN THE HOSPITAL: Luis Angel Apple MD * (DICTATED BY MIKAYLA ROTH) PRIMARY DISCHARGE DIAGNOSES: 1. Transient ischemic attack. 2. Patent foramen ovale. 3. Hypertensive urgency. SECONDARY DISCHARGE DIAGNOSES: 1. Rheumatoid arthritis. 2. Anxiety. 3. Hypothyroidism. STUDIES DONE WHILE IN THE HOSPITAL: Electrocardiogram from 10/20/[address] segment elevation in lead V1 consistent with previous exams, no ST segment changes and hypertrophy, enlargement; normal axis, rate of 58, QTc is 433. A repeat EKG from 10/21/17 shows no significant changes. Brain CT from read as no intracranial mass, hemorrhage, chronic ischemic white matter changes with no change since 02/08/16. Chest x-ray from 10/20/17 read as no radiographic evidence for acute cardiopulmonary abnormality. Brain MRI from read as no acute abnormality, chronic microvascular ischemic change, chronic small vessel microhemorrhage versus calcification. Head CTA from shows no acute findings. Normal head CTA. Transthoracic echocardiogram from 10/21/17 shows left ventricular chamber size normal, mild concentric left ventricular hypertrophy, normal left ventricular systolic function, estimated ejection fraction 55 to 60%, E to A reversal in the mitral valve both times suggest a diastolic dysfunction. PFO was demonstrated by color Doppler. 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 There is trace aortic regurgitation. There is mild mitral regurgitation, mild tricuspid regurgitation. No pulmonary hypertension. Mild pulmonic regurgitation. Mild dilatation of the ascending aorta. No significant changes compared to the previous study from 02/08/16. Venous Doppler study on 10/20/17 read as normal bilateral lower extremity duplex venous ultrasound. MEDICATIONS AT DISCHARGE: 1. Zolpidem 5 mg p.o. at bedtime as needed. 2. Vitamin D 5000 units p.o. daily. 3. Leucovorin 5 mg p.o. weekly. 4. Hydroxychloroquine 4 mg p.o. daily. 5. Aspirin 81 mg p.o. daily. 6. Levothyroxine 100 mcg p.o. daily. 7. Propranolol 60 mg p.o. daily. 8. Lisinopril 10 mg p.o. daily. 9. Atorvastatin 10 mg p.o. daily. 10. Tylenol 650 mg p.o. q.6 hours as needed. 11. Xarelto 20 mg p.o. daily. 12. Methotrexate 50 mg p.o. weekly. New medications at discharge: 1. Xarelto. 2. Aspirin 81 mg p.o. daily. HOSPITAL COURSE: This is a brief summary of the patient's presentation. For more details, please see the history and physical from this author on 10/20/17. In brief, the patient is a 67-year-old female with a past medical history significant for the above who on the day of admission had several abnormal episodes first of which consisted of severe unsteadiness with left facial numbness and arm numbness, which passed after approximately 15 minutes. The patient then later had an episode of just feeling very abnormal and then episode of chest discomfort on her way to the emergency department. The patient has known left facial numbness from her likely CVA earlier this year. The patient's neurologic deficits resolved. The patient had negative troponins , nonischemic EKGs. The patient's blood pressure was elevated to approximately 200/100 when she initially presented to the emergency department. The patient was given labetalol in the emergency department, which decreased her pressures to 170/100. The patient was permitted to have slight hypertension with blood pressure goal between 150 and 180 due to ischemic episode and hypertensive urgency, not want to lower the patient's blood pressure acutely more than 25% within the first 24 hours. The patient's blood pressure trended down without that intervention. The patient had p.r.n. medications for controlling her blood pressure, which were not needed. The patient had no other significant neurological or cardiac events. While in the hospital, the patient was seen in consultation by Dr. Cheikh Cueva of Neurology on the emergency department who recommended blood pressure control as above, imaging as above and cardiology consultation for consideration of PFO closure and anticoagulation. The patient was seen in consultation by Dr. Cobian of Cardiology who recommended outpatient ROCIO as well as anticoagulation with a NOAC. The patient was in agreement with this change. The patient was started on Xarelto and was stable enough for discharge, will follow up with Dr. Cueva as well as Dr. Cobian outpatient. PHYSICAL EXAMINATION ON THE DAY OF DISCHARGE: General: The patient is a 67- year- old female who appears stated age and sitting comfortably in the bed, in no acute distress. Vital Signs: At the time of discharge, temperature 98.2, pulse rate 51, respiratory rate 20, oxygen saturation 97% on room air, blood pressure 145/80. HEENT: Head: Normocephalic, atraumatic. Sclerae anicteric. No conjunctival injection. Nasal mucosa is moist. Oral mucosa is moist. No pharyngeal erythema, discharge, or exudate. Neck: Supple, nontender. No lymphadenopathy. No carotid bruits auscultated. No JVD. Cardiac: Regular rate and rhythm. No clicks, murmurs, gallops, or rubs. Pulses are 2+ in the bilateral dorsalis pedis, posterior tibialis, and radial areas. Respiratory: Clear to auscultation bilaterally. No wheezes, rales, or rhonchi. Good air exchange bilaterally. Abdomen: Soft, nontender, nondistended. Bowel sounds present, normoactive in all 4 quadrants. No hepatosplenomegaly. No abdominal bruits auscultated. No hepatojugular reflux. Genitourinary: No suprapubic or CVA tenderness. Skin: Clean, dry, intact. No rash. Neuro: Cranial nerves II through XII were intact except for a small area of ovoid numbness on the patient 's left face, which is stable from early this year and previous examination. Strength preserved in bilateral upper and lower extremities distally and proximally. Sensation to light touch preserved in the bilateral upper and lower extremities distally and proximally. Cerebellar testing performed without difficulty. Normal gait. Psychiatric: Pleasant and cooperative. DISCHARGE PLAN: The patient will be discharged to home. The patient will be started on Xarelto. The patient received her first dose while in the hospital and she will take this medication in the evening with her evening meal. The patient's aspirin will be decreased from 325 to 81 mg due to concurrent anticoagulation with Xarelto, no compelling evidence for 325 mg of aspirin over 81 for primary and secondary prevention of heart attack and stroke. The patient will not be started on dual antiplatelet therapy at this time due to Xarelto anticoagulation. The patient will be resumed on her home antihypertensive medications as these have been working for her in the past. The patient will take her blood pressure twice a day to assess for any times of the day where it is higher than others. The patient will take these measurements to her primary care provider who she will follow up within 1 week and discuss changes to her antihypertensive medications. The patient is to follow up with Dr. Cobian in 2 weeks for the timing of an elective ROCIO, as well as monitoring for blood pressure and discussing closure of the PFO. The patient will follow up Dr. Jam Cueva within 1 month for post TIA care and to discuss further methods of secondary prevention of TIA. The patient will have a heart healthy diet without caffeine. The patient will engage in activity as tolerated. The patient should return to the hospital for new neurologic deficits, chest pain, shortness of breath, or other alarming symptoms. TIME SPENT: Approximately 60 minutes was spent on this discharge, 45 of which was spent [id number] with the patient obtaining history and physical and discussing treatment plan. MIKAYLA ROTH [id number]/[facility] #: [id number] NIRAV
== END 2017-10-22 07:07 | disposition home or self-care (01) ==
LOC: ED 14:58 → MEDTELE 18:09
PROVIDERS: ADMIT Internal Medicine; ATTEND Internal Medicine
DX: G45.9 Transient cerebral ischemic attack, unspecified (principal); Q21.1 Atrial septal defect; I16.0 Hypertensive urgency; M06.9 Rheumatoid arthritis, unspecified; F41.9 Anxiety disorder, unspecified; E03.9 Hypothyroidism, unspecified; Z79.899 Other long term (current) drug therapy; Z79.01 Long term (current) use of anticoagulants; Z79.82 Long term (current) use of aspirin; Z86.73 Personal history of transient ischemic attack (TIA), and cerebral infarction without residual deficits; H35.30 Unspecified macular degeneration; Z87.891 Personal history of nicotine dependence; R07.9 Chest pain, unspecified; K21.9 Gastro-esophageal reflux disease without esophagitis; R00.1 Bradycardia, unspecified; I51.7 Cardiomegaly
CPT/HCPCS: 36415; 70450; 70496; 70498; 70551; 71045; 80048; 80053; 80061; 81003; 81015; 82607; 82746; 83090; 83605; 83735; 84439; 84443; 84484; 85025; 85610; 85730; 86850; 86900; 86901; 87086; 93005; 93306; 93970; 96361; 96374; 99283; A9270-GY; G0378; J1644; Q9967

== ENCOUNTER 2020-07-13 11:55 | Observation (INO) ==
[2020-07-13] MEDS ORDERED: NS 0.9% 1000 ml BAG 1,000 ML IV ONE ×2 (12:52→14:16)
[2020-07-13 14:02] LABS: ABS Eosinophils 0.1 10^3/ul (0-0.6); ABS Lymphocytes 1.5 10^3/ul (1.0-4.8); ABS Monocytes 1.3 10^3/ul (0-0.8); ABS Neutrophils 4.2 10^3/ul (1.5-7.7); Eosinophil % 0.8 %; Hematocrit 30 % (35-47); Hemoglobin 9.9 g/dL (12.0-16.0); Lymphocyte % 21.2 %; Mean Corpuscular HGB Conc 34 g/dL (31-36); Mean Corpuscular Hemoglobin 31 pg (27-31); Mean Corpuscular Volume 92 fL (80-97); Platelet Count 296 10^3/uL (150-450); Red Cell Distribution Width 21 % (10-15); White Blood Count 7.2 10^3/uL (3.5-10.8)
[2020-07-13 14:19] LABS: ALT 23 U/L (7-52); AST 19 U/L (13-39); Albumin 3.3 g/dL (3.2-5.2); Albumin/Globulin Ratio 1.6 (1-3); Alkaline Phosphatase 74 U/L (35-149); Anion Gap 7 mmol/L (2-11); Blood Urea Nitrogen 17 mg/dL (6-24); CO2 Carbon Dioxide 32 mmol/L (22-32); Calcium 8.4 mg/dL (8.6-10.3); Chloride 99 mmol/L (101-111); EGFR African American 147.6 (>60); Globulin 2.1 g/dL (2-4); Glucose 116 mg/dL (70-100); Magnesium 2.1 mg/dL (1.9-2.7); Sodium 138 mmol/L (135-145); Total Protein 5.4 g/dL (6.4-8.9)
[2020-07-13] MEDS ORDERED: Potassium Chlor 20 meq TAB.ER PO ONE (14:22)
[2020-07-13] MEDS ORDERED: Iohexol 350 (CONTRAST) 500 ML MDV IV ONE (14:23)
[2020-07-13 14:26] LABS: Troponin I 0.05 ng/mL (<0.03)
[2020-07-13] MEDS: KCL 20 MEQ/100 ML IVPREMIX 20 MEQ/100 ML BAG IV SCH ×2 (14:48→17:28)
[2020-07-13 15:22] LABS: TSH Ultra Thyroid Stim Horm 1.92 mcIU/mL (0.34-5.60)
[2020-07-13] MEDS ORDERED: Ondansetron 4 mg VIAL 2 MG/ML 2 ml VIAL IV ONE (15:30)
[2020-07-13 15:37] LABS: Lipase 54 U/L (11.0-82.0)
[2020-07-13 16:08] LABS: Urine Appearance Turbid; Urine Bacteria Absent (Absent); Urine Bilirubin Negative (Negative); Urine Blood Negative (Negative); Urine Color Yellow; Urine Glucose Negative (Negative); Urine Ketones Negative (Negative); Urine Nitrite Negative (Negative); Urine Protein 1+(30 mg/dL) (Negative); Urine Red Blood Cell 3+(>10/hpf) (Absent); Urine Squamous Epithelial Cell Present (Absent); Urine Urobilinogen Negative (Negative); Urine White Blood Cell Trace(0-5/hpf) (Absent)
[2020-07-13 16:49] LABS: Activated Partial Thrombo Time 22.5 seconds (26.0-38.0); INR 1.37 (0.82-1.09)
[2020-07-13 17:03] LABS: Troponin I 0.05 ng/mL (<0.03)
[2020-07-13] MEDS ORDERED: NS 0.9% 1000 ml BAG 1,000 ML IV SCH (18:45)
[2020-07-13 21:24] LABS: Vitamin B12 > 1450 pg/mL (180-914)
[2020-07-13] MEDS: Enoxaparin 40 MG/0.4 ML SYR SUBCUT SCH (22:33)
[2020-07-13 23:53] LABS: Troponin I 0.04 ng/mL (<0.03)
[2020-07-14 06:30] LABS: ABS Lymphocytes 1.7 10^3/ul (1.0-4.8); ABS Neutrophils 4.9 10^3/ul (1.5-7.7); Eosinophil % 0.5 %; Lymphocyte % 21.8 %; Nucleated Red Blood Cells % 0.1
[2020-07-14 06:31] LABS: Calcium 7.8 mg/dL (8.6-10.3); EGFR African American 175.7 (>60); EGFR Non-African American 145.2 (>60); HDL Cholesterol 53.1 mg/dL; Potassium 3.1 mmol/L (3.5-5.0)
[2020-07-14] MEDS ORDERED: Potassium Chloride LIQUID 20 MEQ/15 ML LIQUID PO ONE (07:19)
[2020-07-14 07:35] LABS: Hematocrit 29 % (35-47); Hemoglobin 9.3 g/dL (12.0-16.0); Mean Corpuscular HGB Conc 33 g/dL (31-36); Mean Corpuscular Hemoglobin 30 pg (27-31); Mean Corpuscular Volume 92 fL (80-97); Mean Platelet Volume 9.6 fL (7.4-10.4); Platelet Count 246 10^3/uL (150-450); Red Blood Count 3.09 10^6 /uL (3.70-4.87); Red Cell Distribution Width 20 % (10-15); White Blood Count 7.8 10^3/uL (3.5-10.8)
[2020-07-14] MEDS: PAIN RELIEVING RUB (MENTHOL/SALICYLATE) 1 APPLIC TUBE TOPICAL PRN ×2 (09:24→14:13)
[2020-07-14] MEDS: Aspirin EC 81 mg TAB.EC (enteric coated) PO SCH (09:31)
[2020-07-14] MEDS: Enoxaparin 40 MG/0.4 ML SYR SUBCUT SCH (20:29)
[2020-07-14] MEDS ORDERED: Magnesium Sulfate IV 1GM/100ML 1 GM/100 ML BAG IV ONE (23:40)
[2020-07-15 00:36] LABS: Calcium 8.1 mg/dL (8.6-10.3); EGFR African American 185.6 (>60); EGFR Non-African American 153.4 (>60); Magnesium 1.9 mg/dL (1.9-2.7); Potassium 3.4 mmol/L (3.5-5.0)
[2020-07-15] MEDS: KCL 20 MEQ/100 ML IVPREMIX 20 MEQ/100 ML BAG IV SCH ×2 (01:12→06:33)
[2020-07-15] MEDS: Aspirin EC 81 mg TAB.EC (enteric coated) PO SCH (10:01)
[2020-07-15] MEDS ORDERED: NS 0.9% 1000 ml BAG 1,000 ML IV ONE (10:35)
[2020-07-15 11:00] VITALS: BP 129/82
[2020-07-15] MEDS: PAIN RELIEVING RUB (MENTHOL/SALICYLATE) 1 APPLIC TUBE TOPICAL PRN (13:03)
== END 2020-07-15 14:05 | disposition home or self-care (01) ==
LOC: ED 11:55 → MEDTELE 11:55
PROVIDERS: ADMIT Internal Medicine; ATTEND Hospitalist